=== PATIENT | male | born 1955 | race Caucasian/White ===

== ENCOUNTER 2024-03-25 10:26 | Inpatient (IN) | payer MEDICARE, OTHER ==
[~2024-03-25] VITALS: Ht 180.3 cm; Wt 68.2 kg
[~2024-03-25 10:26] MED LIST: AMOX1TAB15 PO
[2024-03-25 11:35] LABS: CALCIUM, SERUM 8.5 mg/dL (8.5-10.1); CARBON DIOXIDE 33 mmol/L (21-32); CHLORIDE 95 mmol/L (98-107); CREATININE 4.8 mg/dL (0.6-1.3); GLUCOSE 56 mg/dL (74-106); POTASSIUM 5.4 mmol/L (3.5-5.1); SODIUM SERUM 132 mmol/L (136-145); UREA NITROGEN, BLOOD 57 mg/dL (7-18)
[2024-03-25] MEDS: CEFEPIME 1 GM in IV D5W 50 ML IV ONE (11:35)
[2024-03-25 11:38] LABS: BASOPHILS # (AUTO) 0.1 K/uL (0.0-0.2); BASOPHILS % (AUTO) 1.8 % (0.0-2.0); EOSINOPHILS % (AUTO) 0.3 % (0.0-6.0); HEMATOCRIT 23 % (39-51); HEMOGLOBIN 7.8 g/dL (13.5-17.5); LYMPHOCYTES # (AUTO) 0.5 K/uL (0.8-4.8); LYMPHOCYTES % (AUTO) 15.4 % (20.0-44.0); MEAN CORPUSCULAR HEMOGLOBIN 32 PG (26.0-33.0); MEAN CORPUSCULAR HGB CONC 35 g/dl (31.0-36.0); MEAN CORPUSCULAR VOLUME 91 fL (80-96); MONOCYTES # (AUTO) 0.2 K/uL (0.1-1.30); MONOCYTES % (AUTO) 5.8 % (2.0-12.0); NEUTROPHILS # (AUTO) 2.5 K/uL (1.8-8.9); NEUTROPHILS % (AUTO) 76.7 % (43.0-81.0); PLATELET COUNT (AUTO) 168 K/uL (150-450); RED BLOOD CELL COUNT(AUTO) 2.49 MIL/uL (4.5-6.0); RED CELL DISTRIBUTION WIDTH 18.9 % (11.5-15.0); WHITE BLOOD COUNT (AUTO) 3.2 K/uL (4.3-11.0)
[2024-03-25 11:45] LABS: INR 1.37 (0.91-1.10); PARTIAL THROMBOPLASTIN TIME 42.4 SEC (24.3-34.3); PROTHROMBIN TIME 14.2 SECS (9.2-11.1)
[2024-03-25 11:52] LABS: ALANINE AMINOTRANSFERASE 53 U/L (12-78); ALBUMIN 1.6 g/dL (3.4-5.0); ALKALINE PHOSPHATASE 1696 U/L (46-116); ASPARTATE AMINOTRANSFERASE 79 U/L (15-37); BILIRUBIN,DIRECT 1.3 mg/dL (0.0-0.2); BILIRUBIN,TOTAL 1.8 mg/dL (0.2-1.0); TOTAL PROTEIN, SERUM 8.6 g/dL (6.4-8.2)
[2024-03-25] MEDS: VANCOMYCIN 1 GM in IV D5W 250 ML IV ONE (12:00)
[2024-03-25] MEDS ORDERED: OMEP20CA15 PO (12:23)
[2024-03-25] MEDS ORDERED: MELA3TAB41 PO (12:23)
[2024-03-25] MEDS ORDERED: VENL37.510 PO (12:23)
[2024-03-25] MEDS ORDERED: NA P133E RC (12:23)
[2024-03-25] MEDS ORDERED: MULT-1275 PO (12:23)
[2024-03-25] MEDS ORDERED: AMLO-213 PO (12:23)
[2024-03-25] MEDS ORDERED: ATOR80TA PO (12:23)
[2024-03-25] MEDS ORDERED: FINA5TAB3 PO (12:23)
[2024-03-25] MEDS ORDERED: POLY17PO4 PO (12:23)
[2024-03-25] MEDS ORDERED: SENN-261 PO (12:23)
[2024-03-25] MEDS ORDERED: TRAM50TA2 PO (12:23)
[2024-03-25] MEDS ORDERED: SEVE2.4P3 PO (12:23)
[2024-03-25] MEDS ORDERED: METO50TA16 PO (12:23)
[2024-03-25] MEDS ORDERED: BISA10SU11 RC (12:23)
[2024-03-25] MEDS ORDERED: INSU100V3 SQ (12:23)
[2024-03-25] MEDS ORDERED: APIX2.5T PO (12:23)
[2024-03-25] MEDS ORDERED: ACET325T53 PO (12:23)
[2024-03-25] MEDS ORDERED: CHOL200059 PO (12:23)
[2024-03-25] MEDS ORDERED: FOLI0.8T23 PO (12:23)
[2024-03-25] MEDS ORDERED: GABA300C PO (12:23)
[2024-03-25] MEDS ORDERED: IV LR 500 ML IV ONE (12:30)
[2024-03-25] MEDS: IV NS 0.9% 1,000 ML BAG IV ONE (13:20)
[2024-03-25] MEDS ORDERED: MAGNESIUM HYDROXIDE 30 ML UDC PO PRN (15:00)
[2024-03-25] MEDS ORDERED: POLYETHYLENE GLYCOL 3350 17 GM POWD.PACK PO PRN (15:00)
[2024-03-25] MEDS ORDERED: Z GUARD REMEDY 4 OZ OINT TP PRN (15:00)
[2024-03-25] MEDS ORDERED: SENNOSIDES 8.6 MG TABLET PO PRN (15:00)
[2024-03-25] MEDS ORDERED: ACETAMINOPHEN 325 MG TABLET PO PRN ×2 (15:00)
[2024-03-25] MEDS ORDERED: NA PHOS,M-B/NA PHOS,DI-BA 1 EA ENEMA RC PRN (15:00)
[2024-03-25] MEDS ORDERED: DEXTROSE 50%-WATER 50 ML DISP.SYRIN IV PRN (15:00)
[2024-03-25] MEDS ORDERED: ONDANSETRON HCL/PF 4 MG/2 ML VIAL IVP PRN (15:00)
[2024-03-25] MEDS ORDERED: BISACODYL SUPP (10 MG) 10 MG/SUPP.RECT SUPP.RECT RC PRN (15:00)
[2024-03-25] MEDS ORDERED: MAG HYDROX/AL HYDROX/SIMETH 30 ML UDC PO PRN (15:00)
[2024-03-25] MEDS: BLOOD SUGAR DIAGNOSTIC 1 EACH STRIP VI SCH (16:58)
[2024-03-25] MEDS: APIXABAN 2.5 MG TABLET PO SCH (16:58)
[2024-03-25] MEDS: SEVELAMER CARBONATE 800 MG TABLET PO SCH (17:27)
[2024-03-25] MEDS ORDERED: VANCOMYCIN 500 MG in IV D5W 100 ML IV PRN (17:30)
[2024-03-25] MEDS: FINASTERIDE (5 MG) 5 MG TABLET PO SCH (22:00)
[2024-03-26] VITALS: BP 136/82; TEMP 97.2; TEMP 97.6; O2SAT 95
[2024-03-26 04:00] VITALS: BP 143/92; TEMP 97.8; O2SAT 97
[2024-03-26 06:46] LABS: BASOPHILS % (AUTO) 1.3 % (0.0-2.0); HEMATOCRIT 23 % (39-51); HEMOGLOBIN 8.1 g/dL (13.5-17.5); LYMPHOCYTES # (AUTO) 0.6 K/uL (0.8-4.8); LYMPHOCYTES % (AUTO) 24.4 % (20.0-44.0); MEAN CORPUSCULAR HEMOGLOBIN 33 PG (26.0-33.0); MEAN CORPUSCULAR HGB CONC 36 g/dl (31.0-36.0); MEAN CORPUSCULAR VOLUME 92 fL (80-96); MONOCYTES # (AUTO) 0.2 K/uL (0.1-1.30); MONOCYTES % (AUTO) 7.6 % (2.0-12.0); NEUTROPHILS # (AUTO) 1.6 K/uL (1.8-8.9); NEUTROPHILS % (AUTO) 65.7 % (43.0-81.0); PLATELET COUNT (AUTO) 138 K/uL (150-450); RED BLOOD CELL COUNT(AUTO) 2.47 MIL/uL (4.5-6.0); RED CELL DISTRIBUTION WIDTH 19.1 % (11.5-15.0); WHITE BLOOD COUNT (AUTO) 2.4 K/uL (4.3-11.0)
[2024-03-26 07:06] LABS: CALCIUM, SERUM 8.2 mg/dL (8.5-10.1); CREATININE 5.3 mg/dL (0.6-1.3); MAGNESIUM 2.3 mg/dL (1.8-2.4); POTASSIUM 5.6 mmol/L (3.5-5.1)
[2024-03-26 07:51] LABS: PHOSPHORUS 8.3 mg/dL (2.5-4.9)
[2024-03-26 08:00] VITALS: BP 148/88; TEMP 98.2; O2SAT 92
[2024-03-26] MEDS: PANTOPRAZOLE 40 MG TABLET.DR PO SCH (08:17)
[2024-03-26] MEDS: VENLAFAXINE 37.5 MG TABLET PO SCH (08:18)
[2024-03-26] MEDS: GABAPENTIN 300 MG CAPSULE PO SCH (08:18)
[2024-03-26] MEDS: TRAMADOL HCL 50 MG TABLET PO PRN (08:19)
[2024-03-26] MEDS: AMLODIPINE BESYLATE 10 MG TABLET PO SCH (08:20)
[2024-03-26] MEDS: METOPROLOL TARTRATE 50 MG TABLET PO SCH (08:21)
[2024-03-26] MEDS: CEFEPIME 1 GM in IV D5W 50 ML IV SCH (11:48)
[2024-03-26 16:05] VITALS: BP 128/79; TEMP 97.5; O2SAT 92
[2024-03-26 20:00] VITALS: BP 123/78; TEMP 97.3; O2SAT 100
[2024-03-26] MEDS: *INSULIN REGULAR(HUMULIN R)HUM 100 UNIT/ML VIAL SQ PRN (22:10)
[2024-03-27] VITALS: BP 135/65; TEMP 98.2; O2SAT 94
[2024-03-27 04:00] VITALS: BP 114/77; TEMP 97.9; O2SAT 91
[2024-03-27] MEDS: INSULIN REGULAR, HUMAN 100 UNIT/ML 3 ML VIAL SQ PRN (06:32)
[2024-03-27 07:00] VITALS: BP 122/55; TEMP 97.7; O2SAT 94
[2024-03-27 16:05] VITALS: BP 128/73; TEMP 98; O2SAT 96
[2024-03-28 04:06] LABS: HEPATITIS B SURFACE AB Non Reactive (.)
== END 2024-03-27 16:00 | DRG 280 ==
LOC: ER 10:32 → TELE 14:50
PROVIDERS: ADMIT Internal Medicine
PROC: 5A1D70Z Performance of Urinary Filtration, Intermittent, Less than 6 Hours Per Day (ICD-10-PCS; principal; 2024-03-25)
DX: I13.2 Hypertensive heart and chronic kidney disease with heart failure and with stage 5 chronic kidney disease, or end stage renal disease (principal); E43 Unspecified severe protein-calorie malnutrition; I21.A1 Myocardial infarction type 2; J15.69 Pneumonia due to other Gram-negative bacteria; G93.41 Metabolic encephalopathy; J96.01 Acute respiratory failure with hypoxia; N18.6 End stage renal disease; I50.33 Acute on chronic diastolic (congestive) heart failure; R18.0 Malignant ascites; J81.1 Chronic pulmonary edema; I48.92 Unspecified atrial flutter; E87.1 Hypo-osmolality and hyponatremia; Z99.2 Dependence on renal dialysis; E11.22 Type 2 diabetes mellitus with diabetic chronic kidney disease; E11.40 Type 2 diabetes mellitus with diabetic neuropathy, unspecified; E11.51 Type 2 diabetes mellitus with diabetic peripheral angiopathy without gangrene; E78.5 Hyperlipidemia, unspecified; K74.60 Unspecified cirrhosis of liver; N40.0 Benign prostatic hyperplasia without lower urinary tract symptoms; M62 Other disorders of muscle; Z88.3 Allergy status to other anti-infective agents; Z88.2 Allergy status to sulfonamides; Z87.891 Personal history of nicotine dependence; Z86.73 Personal history of transient ischemic attack (TIA), and cerebral infarction without residual deficits; Z79.4 Long term (current) use of insulin; Z79.01 Long term (current) use of anticoagulants; Z79.899 Other long term (current) drug therapy; E86.1 Hypovolemia; E87.5 Hyperkalemia; I48.91 Unspecified atrial fibrillation; D63.8 Anemia in other chronic diseases classified elsewhere; E88.09 Other disorders of plasma-protein metabolism, not elsewhere classified; F32.9 Major depressive disorder, single episode, unspecified; K21.9 Gastro-esophageal reflux disease without esophagitis; N25.0 Renal osteodystrophy; Z85.9 Personal history of malignant neoplasm, unspecified; Y95 Nosocomial condition
CPT/HCPCS: 36415; 70450-TC; 71045-TC; 80048-TC; 80076-TC; 80202-TC; 82962-TC; 83605-TC; 83735-TC; 83880; 84100-TC; 84484-TC; 85025-TC; 85730-TC; 86706; 87040-TC; 87340; 90935-TC; 93307-TC; A4223; A6253; G0378; J0692; J1815; J3370; J7050; J7060; J7120

== ENCOUNTER 2024-06-16 21:05 | Inpatient (IN) | payer MEDICARE, OTHER ==
[~2024-06-16] VITALS: Ht 172.7 cm; Wt 73.5 kg
[~2024-06-16 21:05] MED LIST changes: +ACET325T53 PO; +AMLO-213 PO; +APIX2.5T PO; +ATOR80TA PO; +BISA10SU11 RC; +CHOL200059 PO; +FINA5TAB3 PO; +FOLI0.8T23 PO; +GABA300C PO; +INSU100V3 SQ; +MELA3TAB41 PO; +MERO500V23 IV; +METO50TA16 PO; +MULT-1275 PO; +NA P133E RC; +OMEP20CA15 PO; +POLY17PO4 PO; +SENN-261 PO; +SEVE2.4P3 PO; +TRAM50TA2 PO; +VENL37.510 PO
[2024-06-16] MEDS ORDERED: ONDANSETRON HCL/PF 4 MG/2 ML VIAL ONE (21:36)
[2024-06-16] MEDS ORDERED: PANTOPRAZOLE 40 MG VIAL ONE (21:36)
[2024-06-16 21:47] LABS: BASOPHILS % (AUTO) 0.9 % (0.0-2.0); EOSINOPHILS # (AUTO) 0.1 K/uL (0.0-0.7); HEMATOCRIT 25 % (39-51); HEMOGLOBIN 8.7 g/dL (13.5-17.5); LYMPHOCYTES # (AUTO) 0.5 K/uL (0.8-4.8); LYMPHOCYTES % (AUTO) 11.8 % (20.0-44.0); MEAN CORPUSCULAR HEMOGLOBIN 33 PG (26.0-33.0); MEAN CORPUSCULAR HGB CONC 35 g/dl (31.0-36.0); MEAN CORPUSCULAR VOLUME 93 fL (80-96); MONOCYTES # (AUTO) 0.2 K/uL (0.1-1.30); MONOCYTES % (AUTO) 4.3 % (2.0-12.0); NEUTROPHILS # (AUTO) 3.7 K/uL (1.8-8.9); PLATELET COUNT (AUTO) 117 K/uL (150-450); RED BLOOD CELL COUNT(AUTO) 2.66 MIL/uL (4.5-6.0); RED CELL DISTRIBUTION WIDTH 16.7 % (11.5-15.0); WHITE BLOOD COUNT (AUTO) 4.6 K/uL (4.3-11.0)
[2024-06-16] MEDS: IV NS 0.9% 1,000 ML BAG IV ONE (21:56)
[2024-06-16] MEDS: PANTOPRAZOLE 80 MG in IV NS 0.9% 100 ML IV ONE (21:56)
[2024-06-16] MEDS: ONDANSETRON HCL/PF 4 MG/2 ML VIAL IVP ONE (21:56)
[2024-06-16 22:07] LABS: CALCIUM, SERUM 8.4 mg/dL (8.5-10.1); CARBON DIOXIDE 27 mmol/L (21-32); CHLORIDE 105 mmol/L (98-107); CREATININE 4.3 mg/dL (0.6-1.3); GLUCOSE 69 mg/dL (74-106); POTASSIUM 5.7 mmol/L (3.5-5.1); SODIUM SERUM 140 mmol/L (136-145); UREA NITROGEN, BLOOD 76 mg/dL (7-18)
[2024-06-16 22:10] LABS: INR 1.17 (0.91-1.10); PARTIAL THROMBOPLASTIN TIME 32.7 SEC (24.3-34.3); PROTHROMBIN TIME 12.3 SECS (9.2-11.1)
[2024-06-16] MEDS: PANTOPRAZOLE 80 MG in IV NS 0.9% 500 ML IV ONE (22:10)
[2024-06-16 22:21] LABS: ALANINE AMINOTRANSFERASE 12 U/L (12-78); ALKALINE PHOSPHATASE 689 U/L (46-116); ASPARTATE AMINOTRANSFERASE 31 U/L (15-37); BILIRUBIN,DIRECT 0.3 mg/dL (0.0-0.2); BILIRUBIN,TOTAL 0.8 mg/dL (0.2-1.0); LIPASE 10 U/L (16-77); TOTAL PROTEIN, SERUM 6.8 g/dL (6.4-8.2)
[2024-06-16] MEDS ORDERED: SODIUM ZIRCONIUM CYCLOSILICATE 10 GM POWD.PACK ONE (22:47)
[2024-06-16] MEDS ORDERED: DEXTROSE 50%-WATER 50 ML DISP.SYRIN ONE (22:47)
[2024-06-16] MEDS: SODIUM ZIRCONIUM CYCLOSILICATE 10 GM POWD.PACK PO ONE (22:48)
[2024-06-16] MEDS: DEXTROSE 50%-WATER 50 ML DISP.SYRIN IV ONE (22:48)
[2024-06-16 23:00] LABS: NT-PRO BNP > 25000 pg/mL (0-125)
[2024-06-17] MEDS ORDERED: ALBUMIN 25% 50 ML IV ONE
[2024-06-17] MEDS: ALBUMIN 25% 12.5 GM/50 ML BOTTLE IV ONE (00:01)
[2024-06-17] MEDS ORDERED: MAGNESIUM HYDROXIDE 30 ML UDC PO PRN (00:30)
[2024-06-17] MEDS ORDERED: MAG HYDROX/AL HYDROX/SIMETH 30 ML UDC PO PRN (00:30)
[2024-06-17] MEDS ORDERED: DEXTROSE 50%-WATER 50 ML DISP.SYRIN ONE ×2 (05:54→07:59)
[2024-06-17] MEDS: BLOOD SUGAR DIAGNOSTIC 1 EACH STRIP IN SCH (05:57)
[2024-06-17] MEDS: DEXTROSE 50%-WATER 50 ML DISP.SYRIN IV PRN (05:57)
[2024-06-17] MEDS ORDERED: Sodium Chloride 154 MEQ in IV 10% DEXTROSE 1,000 ML IV PRN (08:30)
[2024-06-17] MEDS ORDERED: PANT40TA49 PO (08:41)
[2024-06-17] MEDS ORDERED: MAGN400O6 PO (08:41)
[2024-06-17] MEDS ORDERED: LEVO25TA9 PO (08:41)
[2024-06-17] MEDS ORDERED: GLUC1KIT IM (08:41)
[2024-06-17] MEDS ORDERED: MIRT7.5T10 PO (08:41)
[2024-06-17] MEDS ORDERED: LORA-259 PO (08:41)
[2024-06-17] MEDS ORDERED: CLON0.1T PO (08:41)
[2024-06-17] MEDS ORDERED: IPRA3AMP23 NEB (08:41)
[2024-06-17] MEDS ORDERED: METO25TA4 PO (08:41)
[2024-06-17] MEDS ORDERED: VENL75TA4 PO (08:41)
[2024-06-17] MEDS: CEFEPIME 2 GM in IV D5W 100 ML IV SCH (09:43)
[2024-06-17] MEDS: IV 10% DEXTROSE 1,000 ML IV PRN (11:38)
[2024-06-17 12:00] VITALS: BP 113/55; TEMP 98.1; O2SAT 93
[2024-06-17] MEDS ORDERED: DIATR MEGLU/DIATRIZOATE SODIUM 30 ML BOTTLE (GASTROGRAPHIN) ONE (12:24)
[2024-06-17 16:00] VITALS: BP 110/62; TEMP 98.2; O2SAT 93
[2024-06-17 20:00] VITALS: BP 148/98; TEMP 94.5; O2SAT 88; O2SAT 97
[2024-06-18] VITALS (10 sets, daily range): BP systolic 114–167; BP diastolic 73–102; TEMP 94.8–98; O2SAT 91–98
[2024-06-18] MEDS: INSULIN REGULAR, HUMAN 100 UNIT/ML 3 ML VIAL SQ PRN (00:07)
[2024-06-18] MEDS: ACETAMINOPHEN 325 MG TABLET PO PRN (03:14)
[2024-06-18 04:29] LABS: CALCIUM, SERUM 7.7 mg/dL (8.5-10.1); CREATININE 3.2 mg/dL (0.6-1.3); MAGNESIUM 2.1 mg/dL (1.8-2.4); PHOSPHORUS 3.8 mg/dL (2.5-4.9); POTASSIUM 4.4 mmol/L (3.5-5.1)
[2024-06-18 04:32] LABS: INR 1.3 (0.91-1.10); PARTIAL THROMBOPLASTIN TIME 39.3 SEC (24.3-34.3); PROTHROMBIN TIME 13.5 SECS (9.2-11.1)
[2024-06-18 04:35] LABS: BASOPHILS % (AUTO) 0.9 % (0.0-2.0); EOSINOPHILS # (AUTO) 0.1 K/uL (0.0-0.7); EOSINOPHILS % (AUTO) 2.9 % (0.0-6.0); LYMPHOCYTES # (AUTO) 0.4 K/uL (0.8-4.8); LYMPHOCYTES % (AUTO) 12.8 % (20.0-44.0); MEAN CORPUSCULAR HEMOGLOBIN 32 PG (26.0-33.0); MEAN CORPUSCULAR HGB CONC 35 g/dl (31.0-36.0); MEAN CORPUSCULAR VOLUME 91 fL (80-96); MONOCYTES # (AUTO) 0.1 K/uL (0.1-1.30); MONOCYTES % (AUTO) 4.8 % (2.0-12.0); NEUTROPHILS # (AUTO) 2.4 K/uL (1.8-8.9); NEUTROPHILS % (AUTO) 78.6 % (43.0-81.0); PLATELET COUNT (AUTO) 90 K/uL (150-450); RED BLOOD CELL COUNT(AUTO) 2.19 MIL/uL (4.5-6.0); RED CELL DISTRIBUTION WIDTH 16.9 % (11.5-15.0); WHITE BLOOD COUNT (AUTO) 3.1 K/uL (4.3-11.0)
[2024-06-18 05:02] LABS: HEMATOCRIT 20 % (39-51)
[2024-06-18 06:08] LABS: PLATELET ESTIMATE ADEQUATE
[2024-06-18 06:14] LABS: EOSINOPHILS % (MANUAL) 3 % (0-4); LYMPHOCYTES % (MANUAL) 12 % (16-48); MONOCYTES % (MANUAL) 7 % (0-11.0); NEUTROPHILS % (MANUAL) 78 (42-76)
[2024-06-18 06:15] LABS: ANISOCYTOSIS 1+
[2024-06-18] MEDS: PANTOPRAZOLE 40 MG VIAL IV SCH (09:11)
[2024-06-18] MEDS ORDERED: hydrALAZINE HCL IV 20 MG VIAL IV PRN (18:00)
[2024-06-18] MEDS: hydrALAZINE HCL IV 20 MG VIAL IV PRN (18:23)
[2024-06-19] VITALS: BP 147/91; TEMP 97.5; O2SAT 97
[2024-06-19 04:00] VITALS: BP 147/100; TEMP 97.5; O2SAT 96
[2024-06-19 07:33] LABS: BASOPHILS % (AUTO) 0.8 % (0.0-2.0); EOSINOPHILS # (AUTO) 0.1 K/uL (0.0-0.7); EOSINOPHILS % (AUTO) 2.3 % (0.0-6.0); HEMATOCRIT 24 % (39-51); HEMOGLOBIN 8.2 g/dL (13.5-17.5); LYMPHOCYTES # (AUTO) 0.4 K/uL (0.8-4.8); LYMPHOCYTES % (AUTO) 10.6 % (20.0-44.0); MEAN CORPUSCULAR HEMOGLOBIN 31 PG (26.0-33.0); MEAN CORPUSCULAR HGB CONC 35 g/dl (31.0-36.0); MEAN CORPUSCULAR VOLUME 89 fL (80-96); MONOCYTES # (AUTO) 0.2 K/uL (0.1-1.30); MONOCYTES % (AUTO) 5.6 % (2.0-12.0); NEUTROPHILS # (AUTO) 3.1 K/uL (1.8-8.9); NEUTROPHILS % (AUTO) 80.7 % (43.0-81.0); PLATELET COUNT (AUTO) 92 K/uL (150-450); RED BLOOD CELL COUNT(AUTO) 2.64 MIL/uL (4.5-6.0); WHITE BLOOD COUNT (AUTO) 3.8 K/uL (4.3-11.0)
[2024-06-19 07:49] LABS: CREATININE 3.6 mg/dL (0.6-1.3); MAGNESIUM 1.9 mg/dL (1.8-2.4); PHOSPHORUS 4.2 mg/dL (2.5-4.9); POTASSIUM 4.9 mmol/L (3.5-5.1)
[2024-06-19 08:00] VITALS: BP 167/95; TEMP 97.9; O2SAT 96
[2024-06-19 08:15] LABS: HEMOGLOBIN 9.1 g/dL (13.5-17.5)
[2024-06-19 10:34] LABS: INR 1.31 (0.91-1.10); PROTHROMBIN TIME 13.3 SECS (9.2-11.1)
[2024-06-19 12:00] VITALS: BP 146/93; TEMP 97.5; O2SAT 98
[2024-06-19 12:06] LABS: ANISOCYTOSIS 1+; EOSINOPHILS % (MANUAL) 2 % (0-4); LYMPHOCYTES % (MANUAL) 11 % (16-48); MONOCYTES % (MANUAL) 3 % (0-11.0); NEUTROPHILS % (MANUAL) 84 (42-76); PLATELET ESTIMATE DECREASED
[2024-06-19] MEDS ORDERED: DEXTROSE 50%-WATER 50 ML DISP.SYRIN ONE (12:15)
[2024-06-19] MEDS ORDERED: ALBUMIN 5% 250 ML IV ONE (12:35)
[2024-06-19] MEDS: DAKINS QUARTER STRENGTH (0.125%) 480 ML BOTTLE TOP SCH (13:54)
[2024-06-19] MEDS: DEXTROSE 50%-WATER 50 ML DISP.SYRIN IVP ONE (14:06)
[2024-06-19 16:00] VITALS: BP 167/97; TEMP 97.6; O2SAT 98
[2024-06-19 20:00] VITALS: BP 155/97; TEMP 97.5; O2SAT 100
[2024-06-19 20:30] LABS: PROTEIN, BODY FLUID 1.3 G/DL
[2024-06-19 22:16] LABS: APPEARANCE,SPUN,BODY FLUID CLEAR (CLEAR); MONOCYTES,BODY FLUID 5 %; TOTAL VOLUME,BODY FLUID 1500 mL; WBC, BODY FLUID 1170 /cu. mm. (0-200)
[2024-06-19] MEDS ORDERED: NS 0.9% IV ONE (22:30)
[2024-06-19] MEDS ORDERED: VANCOMYCIN IV ONE (22:30)
[2024-06-19] MEDS ORDERED: VANCOMYCIN 1 GM /D5W 250 ML PB IV ONE (23:57)
[2024-06-20] VITALS: BP 148/92; TEMP 97.5; O2SAT 100
[2024-06-20] MEDS: VANCOMYCIN 1 GM in IV D5W 250 ML IV ONE (00:21)
[2024-06-20 04:00] VITALS: BP 145/76; TEMP 97.5; O2SAT 100
[2024-06-20 07:25] LABS: BASOPHILS % (AUTO) 0.3 % (0.0-2.0); EOSINOPHILS # (AUTO) 0.1 K/uL (0.0-0.7); EOSINOPHILS % (AUTO) 2.7 % (0.0-6.0); HEMATOCRIT 24 % (39-51); HEMOGLOBIN 8.2 g/dL (13.5-17.5); LYMPHOCYTES # (AUTO) 0.4 K/uL (0.8-4.8); LYMPHOCYTES % (AUTO) 11.4 % (20.0-44.0); MEAN CORPUSCULAR HEMOGLOBIN 31 PG (26.0-33.0); MEAN CORPUSCULAR HGB CONC 35 g/dl (31.0-36.0); MEAN CORPUSCULAR VOLUME 89 fL (80-96); MONOCYTES # (AUTO) 0.2 K/uL (0.1-1.30); MONOCYTES % (AUTO) 4.3 % (2.0-12.0); NEUTROPHILS % (AUTO) 81.3 % (43.0-81.0); PLATELET COUNT (AUTO) 66 K/uL (150-450); RED BLOOD CELL COUNT(AUTO) 2.67 MIL/uL (4.5-6.0); RED CELL DISTRIBUTION WIDTH 17.1 % (11.5-15.0); WHITE BLOOD COUNT (AUTO) 3.6 K/uL (4.3-11.0)
[2024-06-20 08:00] VITALS: BP 147/106; TEMP 97.3; O2SAT 99
[2024-06-20 08:33] LABS: CALCIUM, SERUM 7.6 mg/dL (8.5-10.1); CREATININE 3.6 mg/dL (0.6-1.3); MAGNESIUM 1.9 mg/dL (1.8-2.4); PHOSPHORUS 4.5 mg/dL (2.5-4.9); POTASSIUM 4.8 mmol/L (3.5-5.1)
[2024-06-20 12:00] VITALS: BP 150/69; TEMP 97.2; O2SAT 100
[2024-06-20 12:08] LABS: ANISOCYTOSIS 1+; EOSINOPHILS % (MANUAL) 2 % (0-4); LYMPHOCYTES % (MANUAL) 12 % (16-48); MONOCYTES % (MANUAL) 3 % (0-11.0); NEUTROPHILS % (MANUAL) 83 (42-76); PLATELET ESTIMATE DECREASED
[2024-06-20] MEDS ORDERED: MIDODRINE HCL (5MG) 5 MG TABLET PO ONE (15:00)
[2024-06-20 16:00] VITALS: BP 147/89; TEMP 97.3; O2SAT 97
[2024-06-20 20:00] VITALS: BP 156/92; TEMP 97.3; O2SAT 100
[2024-06-21] VITALS: BP 162/97; TEMP 97.5; O2SAT 100
[2024-06-21 04:00] VITALS: BP 134/87; TEMP 97.5; O2SAT 99
[2024-06-21 07:09] LABS: CALCIUM, SERUM 7.5 mg/dL (8.5-10.1); CREATININE 2.8 mg/dL (0.6-1.3); MAGNESIUM 1.9 mg/dL (1.8-2.4); PHOSPHORUS 4.1 mg/dL (2.5-4.9); POTASSIUM 4.3 mmol/L (3.5-5.1)
[2024-06-21 07:41] LABS: BASOPHILS % (AUTO) 0.4 % (0.0-2.0); EOSINOPHILS # (AUTO) 0.1 K/uL (0.0-0.7); EOSINOPHILS % (AUTO) 4.1 % (0.0-6.0); HEMATOCRIT 22 % (39-51); HEMOGLOBIN 7.9 g/dL (13.5-17.5); LYMPHOCYTES # (AUTO) 0.4 K/uL (0.8-4.8); LYMPHOCYTES % (AUTO) 12.4 % (20.0-44.0); MEAN CORPUSCULAR HEMOGLOBIN 32 PG (26.0-33.0); MEAN CORPUSCULAR HGB CONC 36 g/dl (31.0-36.0); MEAN CORPUSCULAR VOLUME 89 fL (80-96); MONOCYTES # (AUTO) 0.2 K/uL (0.1-1.30); MONOCYTES % (AUTO) 4.5 % (2.0-12.0); NEUTROPHILS # (AUTO) 2.8 K/uL (1.8-8.9); NEUTROPHILS % (AUTO) 78.6 % (43.0-81.0); PLATELET COUNT (AUTO) 67 K/uL (150-450); RED BLOOD CELL COUNT(AUTO) 2.47 MIL/uL (4.5-6.0); RED CELL DISTRIBUTION WIDTH 16.6 % (11.5-15.0); WHITE BLOOD COUNT (AUTO) 3.6 K/uL (4.3-11.0)
[2024-06-21 08:00] VITALS: BP 147/91; TEMP 97.5; O2SAT 99
[2024-06-21 10:47] LABS: LYMPHOCYTES % (MANUAL) 11 % (16-48); MONOCYTES % (MANUAL) 5 % (0-11.0); NEUTROPHILS % (MANUAL) 84 (42-76); PLATELET ESTIMATE DECREASED
[2024-06-21 10:48] LABS: ANISOCYTOSIS 1+
[2024-06-21 12:00] VITALS: BP 140/95; TEMP 97.8; O2SAT 99
[2024-06-21] MEDS: VANCOMYCIN 500 MG in IV D5W 100ml IV ONE (13:08)
[2024-06-21 16:00] VITALS: BP 138/95; TEMP 97.8; O2SAT 99
[2024-06-21 16:02] LABS: BASOPHILS % (AUTO) 0.4 % (0.0-2.0); EOSINOPHILS # (AUTO) 0.2 K/uL (0.0-0.7); EOSINOPHILS % (AUTO) 5.5 % (0.0-6.0); HEMATOCRIT 22 % (39-51); HEMOGLOBIN 8.2 g/dL (13.5-17.5); LYMPHOCYTES # (AUTO) 0.4 K/uL (0.8-4.8); LYMPHOCYTES % (AUTO) 11.2 % (20.0-44.0); MEAN CORPUSCULAR HEMOGLOBIN 32 PG (26.0-33.0); MEAN CORPUSCULAR HGB CONC 36 g/dl (31.0-36.0); MEAN CORPUSCULAR VOLUME 89 fL (80-96); MONOCYTES # (AUTO) 0.2 K/uL (0.1-1.30); NEUTROPHILS # (AUTO) 3.1 K/uL (1.8-8.9); NEUTROPHILS % (AUTO) 77.9 % (43.0-81.0); PLATELET COUNT (AUTO) 59 K/uL (150-450); RED BLOOD CELL COUNT(AUTO) 2.53 MIL/uL (4.5-6.0); RED CELL DISTRIBUTION WIDTH 16.6 % (11.5-15.0)
[2024-06-21] MEDS ORDERED: diphenhydrAMINE HCL 50 MG/ML VIAL IV ONE (17:00)
[2024-06-21] MEDS ORDERED: VANCOMYCIN POST DIALYSIS 500MG IV PRN (17:00)
[2024-06-21] MEDS ORDERED: ACETAMINOPHEN 325 MG TABLET PO ONE (17:00)
[2024-06-21 17:19] LABS: INR 1.48 (0.91-1.10); PARTIAL THROMBOPLASTIN TIME 44.5 SEC (24.3-34.3); PROTHROMBIN TIME 15.3 SECS (9.2-11.1)
[2024-06-21 18:29] LABS: D-DIMER 4.68 mg/L(FEU (0.17-0.50)
[2024-06-21 18:31] LABS: RHEUMATOID FACTOR SCREEN NEGATIVE (NEGATIVE)
[2024-06-21 18:42] LABS: THYROID STIMULATING HORMONE 4.51 uIU/mL (0.358-3.74)
[2024-06-21 19:07] LABS: ANISOCYTOSIS 1+; EOSINOPHILS % (MANUAL) 4 % (0-4); LYMPHOCYTES % (MANUAL) 10 % (16-48); MONOCYTES % (MANUAL) 2 % (0-11.0); NEUTROPHILS % (MANUAL) 84 (42-76); PLATELET ESTIMATE DECREASED
[2024-06-21 20:00] VITALS: BP 156/97; TEMP 97.8; O2SAT 100
[2024-06-22] VITALS: BP_SYST 160; BP_SYST 161; BP_DIAS 88; BP_DIAS 90; TEMP 97.1; TEMP 97.3; O2SAT 100
[2024-06-22 04:00] VITALS: BP 157/90; TEMP 98.5; O2SAT 100
[2024-06-22 07:09] LABS: HEPATITIS B SURFACE AB (QUAL) Non Reactive (.)
[2024-06-22 08:00] VITALS: BP 159/89; TEMP 97.3; O2SAT 100
[2024-06-22 08:11] LABS: IMMUNOGLOBULIN A, SERUM 731 mg/dL (61-437); IMMUNOGLOBULIN G, SERUM 2423 mg/dL (603-1613); IMMUNOGLOBULIN M, SERUM 154 mg/dL (20-172)
[2024-06-22 08:19] LABS: BASOPHILS % (AUTO) 0.8 % (0.0-2.0); EOSINOPHILS # (AUTO) 0.2 K/uL (0.0-0.7); EOSINOPHILS % (AUTO) 5.3 % (0.0-6.0); HEMATOCRIT 23 % (39-51); HEMOGLOBIN 8.2 g/dL (13.5-17.5); LYMPHOCYTES # (AUTO) 0.4 K/uL (0.8-4.8); LYMPHOCYTES % (AUTO) 11.1 % (20.0-44.0); MEAN CORPUSCULAR HEMOGLOBIN 31 PG (26.0-33.0); MEAN CORPUSCULAR HGB CONC 35 g/dl (31.0-36.0); MEAN CORPUSCULAR VOLUME 89 fL (80-96); MONOCYTES # (AUTO) 0.2 K/uL (0.1-1.30); MONOCYTES % (AUTO) 4.1 % (2.0-12.0); NEUTROPHILS % (AUTO) 78.7 % (43.0-81.0); PLATELET COUNT (AUTO) 57 K/uL (150-450); RED CELL DISTRIBUTION WIDTH 16.3 % (11.5-15.0); WHITE BLOOD COUNT (AUTO) 3.8 K/uL (4.3-11.0)
[2024-06-22 08:34] LABS: CALCIUM, SERUM 7.4 mg/dL (8.5-10.1); CREATININE 3.2 mg/dL (0.6-1.3); MAGNESIUM 1.9 mg/dL (1.8-2.4); PHOSPHORUS 4.4 mg/dL (2.5-4.9); POTASSIUM 4.5 mmol/L (3.5-5.1)
[2024-06-22 08:36] LABS: INR 1.46 (0.91-1.10); PROTHROMBIN TIME 15.1 SECS (9.2-11.1)
[2024-06-22 08:44] LABS: D-DIMER 4.94 mg/L(FEU (0.17-0.50)
[2024-06-22 10:08] LABS: BILIRUBIN,DIRECT 0.3 mg/dL (0.0-0.2); BILIRUBIN,TOTAL 0.7 mg/dL (0.2-1.0); TOTAL PROTEIN, SERUM 5.9 g/dL (6.4-8.2)
[2024-06-22 11:10] LABS: FOLIC ACID 2.2 ng/mL (>3.0)
[2024-06-22 12:00] VITALS: BP 156/98; TEMP 97.7; O2SAT 99
[2024-06-22 12:10] LABS: ANISOCYTOSIS 1+; EOSINOPHILS % (MANUAL) 9 % (0-4); LYMPHOCYTES % (MANUAL) 4 % (16-48); MONOCYTES % (MANUAL) 1 % (0-11.0); NEUTROPHILS % (MANUAL) 86 (42-76); PLATELET ESTIMATE DECREASED
[2024-06-22 12:11] LABS: *ANA ANTI-CENTROMERE B AB <0.2 AI (0.0-0.9); *ANA ANTI-DNA(DS) AB, QN 1 IU/mL (0-9); *ANA ANTI-JO-1 <0.2 AI (0.0-0.9); *ANA ANTICHROMATIN ANTIBODY 0.3 AI (0.0-0.9); *ANA RNP ANTIBODIES 2.1 AI (0.0-0.9); *ANA SJOGREN'S ANTI-SS-A <0.2 AI (0.0-0.9); *ANA SJOGREN'S ANTI-SS-B <0.2 AI (0.0-0.9); *ANAANTI-SCLERODERMA-70 AB <0.2 AI (0.0-0.9); *ANASMITH AB <0.2 AI (0.0-0.9)
[2024-06-22] MEDS ORDERED: ALBUMIN 25% 25 GM in PREMIX 1 EA IV STA (13:54)
[2024-06-22] MEDS: FOLIC ACID 1 MG TABLET PO SCH (14:52)
[2024-06-22 16:00] VITALS: BP 156/98; TEMP 97.7; O2SAT 100
[2024-06-22] MEDS: VANCOMYCIN POST DIALYSIS 500MG IV PRN (16:56)
[2024-06-22 20:00] VITALS: BP 157/81; TEMP 97.3; O2SAT 100
[2024-06-23] VITALS: BP 160/88; TEMP 97.3; O2SAT 100
[2024-06-23 04:00] VITALS: BP 168/89; TEMP 97.5; O2SAT 100
[2024-06-23 08:00] VITALS: BP 121/98; TEMP 97.5; O2SAT 95
[2024-06-23 08:33] LABS: BASOPHILS % (AUTO) 0.4 % (0.0-2.0); EOSINOPHILS # (AUTO) 0.1 K/uL (0.0-0.7); EOSINOPHILS % (AUTO) 3.9 % (0.0-6.0); HEMATOCRIT 24 % (39-51); HEMOGLOBIN 8.4 g/dL (13.5-17.5); LYMPHOCYTES # (AUTO) 0.4 K/uL (0.8-4.8); LYMPHOCYTES % (AUTO) 9.8 % (20.0-44.0); MEAN CORPUSCULAR HEMOGLOBIN 32 PG (26.0-33.0); MEAN CORPUSCULAR HGB CONC 35 g/dl (31.0-36.0); MEAN CORPUSCULAR VOLUME 89 fL (80-96); MONOCYTES # (AUTO) 0.2 K/uL (0.1-1.30); NEUTROPHILS % (AUTO) 80.9 % (43.0-81.0); PLATELET COUNT (AUTO) 51 K/uL (150-450); RED BLOOD CELL COUNT(AUTO) 2.67 MIL/uL (4.5-6.0); RED CELL DISTRIBUTION WIDTH 16.2 % (11.5-15.0); WHITE BLOOD COUNT (AUTO) 3.7 K/uL (4.3-11.0)
[2024-06-23 08:41] LABS: CALCIUM, SERUM 7.5 mg/dL (8.5-10.1); CREATININE 2.8 mg/dL (0.6-1.3); MAGNESIUM 1.9 mg/dL (1.8-2.4); PHOSPHORUS 3.9 mg/dL (2.5-4.9); POTASSIUM 4.4 mmol/L (3.5-5.1)
[2024-06-23 09:20] LABS: INR 1.46 (0.91-1.10); PARTIAL THROMBOPLASTIN TIME 43.5 SEC (24.3-34.3); PROTHROMBIN TIME 15.1 SECS (9.2-11.1)
[2024-06-23 09:28] LABS: D-DIMER 4.54 mg/L(FEU (0.17-0.50)
[2024-06-23 10:15] LABS: EOSINOPHILS % (MANUAL) 3 % (0-4); LYMPHOCYTES % (MANUAL) 12 % (16-48); MONOCYTES % (MANUAL) 3 % (0-11.0); NEUTROPHILS % (MANUAL) 82 (42-76); PLATELET ESTIMATE DECREASED
[2024-06-23 12:00] VITALS: BP 140/82; TEMP 95.4; O2SAT 100
[2024-06-23 13:35] LABS: OCCULT BLOOD STOOL NEGATIVE (NEGATIVE)
[2024-06-23 16:00] VITALS: BP 135/95; TEMP 97.5; O2SAT 99
[2024-06-23] MEDS: ALBUMIN 25% 25 GM in PREMIX 1 EA IV PRN (18:46)
[2024-06-23] MEDS: PHYTONADIONE INJ 10 MG/1 ML AMPUL SQ ONE (19:45)
[2024-06-23 20:00] VITALS: BP 148/98; TEMP 98.5; O2SAT 99
[2024-06-24] VITALS: BP 148/98; TEMP 98.5; O2SAT 99
[2024-06-24 04:00] VITALS: BP 108/89; TEMP 97.8; O2SAT 99
[2024-06-24 08:00] VITALS: BP 125/92; TEMP 97.3; O2SAT 100
[2024-06-24 08:40] LABS: CALCIUM, SERUM 7.7 mg/dL (8.5-10.1); CREATININE 2.4 mg/dL (0.6-1.3); PHOSPHORUS 3.8 mg/dL (2.5-4.9); POTASSIUM 3.9 mmol/L (3.5-5.1)
[2024-06-24 08:50] LABS: D-DIMER 3.69 mg/L(FEU (0.17-0.50); INR 1.44 (0.91-1.10); PROTHROMBIN TIME 14.9 SECS (9.2-11.1)
[2024-06-24 08:54] LABS: BASOPHILS % (AUTO) 0.4 % (0.0-2.0); EOSINOPHILS # (AUTO) 0.1 K/uL (0.0-0.7); EOSINOPHILS % (AUTO) 3.7 % (0.0-6.0); LYMPHOCYTES # (AUTO) 0.3 K/uL (0.8-4.8); LYMPHOCYTES % (AUTO) 8.9 % (20.0-44.0); MEAN CORPUSCULAR HEMOGLOBIN 31 PG (26.0-33.0); MEAN CORPUSCULAR HGB CONC 35 g/dl (31.0-36.0); MEAN CORPUSCULAR VOLUME 88 fL (80-96); MONOCYTES # (AUTO) 0.2 K/uL (0.1-1.30); MONOCYTES % (AUTO) 4.4 % (2.0-12.0); NEUTROPHILS % (AUTO) 82.6 % (43.0-81.0); RED BLOOD CELL COUNT(AUTO) 2.29 MIL/uL (4.5-6.0); RED CELL DISTRIBUTION WIDTH 16.8 % (11.5-15.0); WHITE BLOOD COUNT (AUTO) 3.7 K/uL (4.3-11.0)
[2024-06-24 09:03] LABS: PLATELET COUNT (AUTO) 44 K/uL (150-450)
[2024-06-24 09:04] LABS: HEMATOCRIT 20 % (39-51)
[2024-06-24] MEDS ORDERED: hydrALAZINE HCL 25 MG TABLET PO PRN (09:30)
[2024-06-24 10:07] LABS: ANISOCYTOSIS 1+; EOSINOPHILS % (MANUAL) 4 % (0-4); LYMPHOCYTES % (MANUAL) 5 % (16-48); MONOCYTES % (MANUAL) 1 % (0-11.0); NEUTROPHILS % (MANUAL) 90 (42-76); PLATELET ESTIMATE DECREASED
[2024-06-24 12:00] VITALS: BP 128/90; TEMP 97.5; O2SAT 96
[2024-06-24 16:00] VITALS: BP 91/68; TEMP 97.5; O2SAT 100
[2024-06-24 20:00] VITALS: BP 147/84; TEMP 97.7; O2SAT 99
[2024-06-25] VITALS (12 sets, daily range): BP systolic 110–154; BP diastolic 61–90; TEMP 97.3–98.9; O2SAT 98–100
[2024-06-25 07:06] LABS: D-DIMER 4.37 mg/L(FEU (0.17-0.50); INR 1.51 (0.91-1.10); PROTHROMBIN TIME 15.6 SECS (9.2-11.1)
[2024-06-25 07:22] LABS: CALCIUM, SERUM 7.3 mg/dL (8.5-10.1); CREATININE 2.2 mg/dL (0.6-1.3); POTASSIUM 3.6 mmol/L (3.5-5.1)
[2024-06-25 07:28] LABS: MAGNESIUM 1.8 mg/dL (1.8-2.4); PHOSPHORUS 3.3 mg/dL (2.5-4.9)
[2024-06-25 08:25] LABS: BASOPHILS % (AUTO) 0.6 % (0.0-2.0); EOSINOPHILS # (AUTO) 0.1 K/uL (0.0-0.7); EOSINOPHILS % (AUTO) 2.5 % (0.0-6.0); LYMPHOCYTES # (AUTO) 0.4 K/uL (0.8-4.8); LYMPHOCYTES % (AUTO) 9.4 % (20.0-44.0); MEAN CORPUSCULAR HEMOGLOBIN 31 PG (26.0-33.0); MEAN CORPUSCULAR HGB CONC 35 g/dl (31.0-36.0); MEAN CORPUSCULAR VOLUME 88 fL (80-96); MONOCYTES # (AUTO) 0.2 K/uL (0.1-1.30); MONOCYTES % (AUTO) 4.3 % (2.0-12.0); NEUTROPHILS # (AUTO) 3.2 K/uL (1.8-8.9); NEUTROPHILS % (AUTO) 83.2 % (43.0-81.0); RED CELL DISTRIBUTION WIDTH 16.8 % (11.5-15.0); WHITE BLOOD COUNT (AUTO) 3.8 K/uL (4.3-11.0)
[2024-06-25 08:30] LABS: RED BLOOD CELL COUNT(AUTO) 1.89 MIL/uL (4.5-6.0)
[2024-06-25 08:32] LABS: HEMATOCRIT 17 % (39-51); HEMOGLOBIN 5.9 g/dL (13.5-17.5); PLATELET COUNT (AUTO) 41 K/uL (150-450)
[2024-06-25] MEDS: CEFEPIME 1 GM in IV D5W 50 ML IV SCH (09:00)
[2024-06-25] MEDS: diphenhydrAMINE HCL 50 MG/ML VIAL IV ONE (10:00)
[2024-06-25] MEDS: ACETAMINOPHEN 325 MG TABLET PO ONE (10:26)
[2024-06-25] MEDS: EPOETIN ALFA (10,000 UNIT) 10,000 UNIT/ML VIAL SQ SCH (10:52)
[2024-06-25 11:42] LABS: FERRITIN 2195 ng/mL (8-388); IRON, SERUM 57 ug/dl (50-175)
[2024-06-25 16:29] LABS: LYMPHOCYTES % (MANUAL) 12 % (16-48); MONOCYTES % (MANUAL) 3 % (0-11.0); NEUTROPHILS % (MANUAL) 85 (42-76); PLATELET ESTIMATE DECREASED
[2024-06-25 16:30] LABS: ANISOCYTOSIS 1+
[2024-06-26] VITALS (21 sets, daily range): BP systolic 104–159; BP diastolic 65–97; TEMP 97.3–98.1; O2SAT 96–100
[2024-06-26 07:31] LABS: INR 1.46 (0.91-1.10); PARTIAL THROMBOPLASTIN TIME 45.1 SEC (24.3-34.3); PROTHROMBIN TIME 15.1 SECS (9.2-11.1)
[2024-06-26 07:35] LABS: D-DIMER 4.87 mg/L(FEU (0.17-0.50)
[2024-06-26 08:09] LABS: CALCIUM, SERUM 7.6 mg/dL (8.5-10.1); CREATININE 2.1 mg/dL (0.6-1.3); MAGNESIUM 1.8 mg/dL (1.8-2.4); PHOSPHORUS 3.3 mg/dL (2.5-4.9); POTASSIUM 3.4 mmol/L (3.5-5.1)
[2024-06-26 08:23] LABS: BASOPHILS % (AUTO) 0.5 % (0.0-2.0); EOSINOPHILS # (AUTO) 0.2 K/uL (0.0-0.7); EOSINOPHILS % (AUTO) 2.6 % (0.0-6.0); HEMATOCRIT 26 % (39-51); HEMOGLOBIN 9.4 g/dL (13.5-17.5); LYMPHOCYTES # (AUTO) 0.3 K/uL (0.8-4.8); LYMPHOCYTES % (AUTO) 5.9 % (20.0-44.0); MEAN CORPUSCULAR HEMOGLOBIN 32 PG (26.0-33.0); MEAN CORPUSCULAR HGB CONC 37 g/dl (31.0-36.0); MEAN CORPUSCULAR VOLUME 85 fL (80-96); MONOCYTES # (AUTO) 0.2 K/uL (0.1-1.30); MONOCYTES % (AUTO) 3.3 % (2.0-12.0); NEUTROPHILS % (AUTO) 87.7 % (43.0-81.0); RED CELL DISTRIBUTION WIDTH 19.4 % (11.5-15.0); WHITE BLOOD COUNT (AUTO) 5.7 K/uL (4.3-11.0)
[2024-06-26 08:47] LABS: PLATELET COUNT (AUTO) 45 K/uL (150-450)
[2024-06-26] MEDS: ACETAMINOPHEN 325 MG TABLET PO ONE (12:26)
[2024-06-26] MEDS: diphenhydrAMINE HCL 50 MG/ML VIAL IV ONE (12:26)
[2024-06-26] MEDS: POTASSIUM CHLORIDE 20 MEQ TAB.PRT.SR PO ONE (13:19)
[2024-06-26 16:58] LABS: LYMPHOCYTES % (MANUAL) 12 % (16-48); MONOCYTES % (MANUAL) 3 % (0-11.0); NEUTROPHILS % (MANUAL) 85 (42-76)
[2024-06-26 17:05] LABS: PLATELET ESTIMATE DECREASED
[2024-06-27] VITALS (7 sets, daily range): BP systolic 143–167; BP diastolic 81–104; TEMP 97.5–97.9; O2SAT 100
[2024-06-27 07:41] LABS: D-DIMER 3.8 mg/L(FEU (0.17-0.50); INR 1.36 (0.91-1.10); PARTIAL THROMBOPLASTIN TIME 41.8 SEC (24.3-34.3); PROTHROMBIN TIME 14.1 SECS (9.2-11.1)
[2024-06-27 08:47] LABS: BASOPHILS % (AUTO) 0.5 % (0.0-2.0); EOSINOPHILS # (AUTO) 0.1 K/uL (0.0-0.7); EOSINOPHILS % (AUTO) 3.2 % (0.0-6.0); HEMATOCRIT 24 % (39-51); HEMOGLOBIN 8.6 g/dL (13.5-17.5); LYMPHOCYTES # (AUTO) 0.2 K/uL (0.8-4.8); LYMPHOCYTES % (AUTO) 4.6 % (20.0-44.0); MEAN CORPUSCULAR HEMOGLOBIN 31 PG (26.0-33.0); MEAN CORPUSCULAR HGB CONC 36 g/dl (31.0-36.0); MEAN CORPUSCULAR VOLUME 86 fL (80-96); MONOCYTES # (AUTO) 0.1 K/uL (0.1-1.30); MONOCYTES % (AUTO) 2.3 % (2.0-12.0); NEUTROPHILS % (AUTO) 89.4 % (43.0-81.0); RED BLOOD CELL COUNT(AUTO) 2.75 MIL/uL (4.5-6.0); RED CELL DISTRIBUTION WIDTH 19.2 % (11.5-15.0); WHITE BLOOD COUNT (AUTO) 4.4 K/uL (4.3-11.0)
[2024-06-27 08:50] LABS: PLATELET COUNT (AUTO) 37 K/uL (150-450)
[2024-06-27] MEDS: ONDANSETRON HCL/PF 4 MG/2 ML VIAL IVP PRN (11:34)
[2024-06-27 11:36] LABS: BILIRUBIN,DIRECT 0.5 mg/dL (0.0-0.2); BILIRUBIN,TOTAL 1.1 mg/dL (0.2-1.0); TOTAL PROTEIN, SERUM 5.6 g/dL (6.4-8.2)
[2024-06-27 11:55] LABS: ALBUMIN 1.3 g/dL (3.4-5.0)
[2024-06-27 14:48] LABS: POTASSIUM 3.5 mmol/L (3.5-5.1)
[2024-06-27 14:51] LABS: NEUTROPHILS % (MANUAL) 92 (42-76)
[2024-06-27 14:52] LABS: ANISOCYTOSIS 1+; LYMPHOCYTES % (MANUAL) 6 % (16-48); MONOCYTES % (MANUAL) 2 % (0-11.0); PLATELET ESTIMATE DECREASED
[2024-06-27 16:21] LABS: BASOPHILS % (AUTO) 0.6 % (0.0-2.0); EOSINOPHILS # (AUTO) 0.1 K/uL (0.0-0.7); EOSINOPHILS % (AUTO) 3.4 % (0.0-6.0); HEMATOCRIT 22 % (39-51); LYMPHOCYTES # (AUTO) 0.3 K/uL (0.8-4.8); LYMPHOCYTES % (AUTO) 6.5 % (20.0-44.0); MEAN CORPUSCULAR HEMOGLOBIN 31 PG (26.0-33.0); MEAN CORPUSCULAR HGB CONC 36 g/dl (31.0-36.0); MEAN CORPUSCULAR VOLUME 86 fL (80-96); MONOCYTES # (AUTO) 0.2 K/uL (0.1-1.30); MONOCYTES % (AUTO) 3.9 % (2.0-12.0); NEUTROPHILS # (AUTO) 3.5 K/uL (1.8-8.9); NEUTROPHILS % (AUTO) 85.6 % (43.0-81.0); RED BLOOD CELL COUNT(AUTO) 2.59 MIL/uL (4.5-6.0); RED CELL DISTRIBUTION WIDTH 19.1 % (11.5-15.0); WHITE BLOOD COUNT (AUTO) 4.1 K/uL (4.3-11.0)
[2024-06-27 16:45] LABS: PLATELET COUNT (AUTO) 32 K/uL (150-450)
[2024-06-27 21:17] LABS: ANISOCYTOSIS 2+; BAND % (MANUAL) 0 % (0.0-5.0); EOSINOPHILS % (MANUAL) 1 % (0-4); LYMPHOCYTES % (MANUAL) 8 % (16-48); MONOCYTES % (MANUAL) 2 % (0-11.0); NEUTROPHILS % (MANUAL) 89 (42-76); PLATELET ESTIMATE DECREASED
[2024-06-28 01:20] VITALS: BP 114/94; TEMP 97; O2SAT 100
[2024-06-28] MEDS: ALBUMIN 5% 12.5 GM in PREMIX 1 EA IV ONE (02:00)
[2024-06-28 04:00] VITALS: BP 146/84; TEMP 97.5; O2SAT 100
[2024-06-28 08:00] VITALS: BP 135/98; TEMP 97; O2SAT 100
[2024-06-28 12:00] VITALS: BP 152/82; TEMP 98; O2SAT 100
[2024-06-28 16:00] VITALS: BP 114/72; TEMP 96.9; O2SAT 99
[2024-06-28 17:10] LABS: *SPE A/G RATIO 0.4 (0.7-1.7); *SPE ALBUMIN 1.6 g/dL (2.9-4.4); *SPE ALPHA-1-GLOBULIN 0.3 g/dL (0.0-0.4); *SPE ALPHA-2-GLOBULIN 0.5 g/dL (0.4-1.0); *SPE BETA GLOBULIN 0.7 g/dL (0.7-1.3); *SPE GLOBULIN, TOTAL 3.7 g/dL (2.2-3.9); *SPE M-SPIKE Not Observed g/dL (Not Observed); *SPE PROTEIN TOTAL 5.3 g/dL (6.0-8.5); *SPEGAMMA GLOBULIN 2.2 g/dL (0.4-1.8)
[2024-06-28 17:54] LABS: HEMOGLOBIN 8.2 g/dL (13.5-17.5); LYMPHOCYTES # (AUTO) 0.2 K/uL (0.8-4.8); MONOCYTES # (AUTO) 0.1 K/uL (0.1-1.30); NEUTROPHILS # (AUTO) 3.9 K/uL (1.8-8.9)
[2024-06-28 18:00] LABS: WHITE BLOOD COUNT (AUTO) 4.3 K/uL (4.3-11.0)
[2024-06-28 18:04] LABS: CALCIUM, SERUM 7.9 mg/dL (8.5-10.1); CREATININE 2.2 mg/dL (0.6-1.3); POTASSIUM 4.3 mmol/L (3.5-5.1)
[2024-06-28 18:15] LABS: BASOPHILS % (AUTO) 0.2 % (0.0-2.0); HEMATOCRIT 23 % (39-51); LYMPHOCYTES % (AUTO) 5.2 % (20.0-44.0); MEAN CORPUSCULAR HEMOGLOBIN 32 PG (26.0-33.0); MEAN CORPUSCULAR HGB CONC 37 g/dl (31.0-36.0); MEAN CORPUSCULAR VOLUME 87 fL (80-96); MONOCYTES % (AUTO) 2.9 % (2.0-12.0); NEUTROPHILS % (AUTO) 90.7 % (43.0-81.0); RED CELL DISTRIBUTION WIDTH 19.1 % (11.5-15.0)
[2024-06-28 18:29] LABS: PLATELET COUNT (AUTO) 29 K/uL (150-450)
[2024-06-28 18:59] LABS: ANISOCYTOSIS 1+; BAND % (MANUAL) 0 % (0.0-5.0); BASOPHILS % (MANUAL) 0 % (0.0-2.0); EOSINOPHILS % (MANUAL) 1 % (0-4); LYMPHOCYTES % (MANUAL) 8 % (16-48); MONOCYTES % (MANUAL) 2 % (0-11.0); NEUTROPHILS % (MANUAL) 89 (42-76); PLATELET ESTIMATE DECREASED
[2024-06-28 20:00] VITALS: BP 89/56; TEMP 96; O2SAT 98
[2024-06-29] VITALS: BP 142/94; TEMP 97.3; O2SAT 100
[2024-06-29 04:00] VITALS: BP 145/91; TEMP 97.7; O2SAT 98
[2024-06-29 08:00] VITALS: BP 142/84; TEMP 97.9; O2SAT 100
[2024-06-29 10:40] LABS: CALCIUM, SERUM 7.9 mg/dL (8.5-10.1); CREATININE 1.8 mg/dL (0.6-1.3); POTASSIUM 3.9 mmol/L (3.5-5.1)
[2024-06-29 10:52] LABS: BASOPHILS % (AUTO) 0.2 % (0.0-2.0); D-DIMER 2.55 mg/L(FEU (0.17-0.50); EOSINOPHILS # (AUTO) 0.1 K/uL (0.0-0.7); EOSINOPHILS % (AUTO) 1.7 % (0.0-6.0); HEMOGLOBIN 7.3 g/dL (13.5-17.5); INR 1.52 (0.91-1.10); LYMPHOCYTES # (AUTO) 0.3 K/uL (0.8-4.8); LYMPHOCYTES % (AUTO) 8.1 % (20.0-44.0); MEAN CORPUSCULAR HEMOGLOBIN 31 PG (26.0-33.0); MEAN CORPUSCULAR HGB CONC 36 g/dl (31.0-36.0); MEAN CORPUSCULAR VOLUME 87 fL (80-96); MONOCYTES # (AUTO) 0.2 K/uL (0.1-1.30); MONOCYTES % (AUTO) 3.8 % (2.0-12.0); NEUTROPHILS # (AUTO) 3.5 K/uL (1.8-8.9); NEUTROPHILS % (AUTO) 86.2 % (43.0-81.0); PARTIAL THROMBOPLASTIN TIME 45.5 SEC (24.3-34.3); PROTHROMBIN TIME 15.7 SECS (9.2-11.1); RED BLOOD CELL COUNT(AUTO) 2.33 MIL/uL (4.5-6.0); WHITE BLOOD COUNT (AUTO) 4.1 K/uL (4.3-11.0)
[2024-06-29] MEDS ORDERED: NEPRO VAN 237 ML CAN PO PRN (11:00)
[2024-06-29 11:03] LABS: HEMATOCRIT 20 % (39-51); PLATELET COUNT (AUTO) 42 K/uL (150-450)
[2024-06-29] MEDS: DEXTROSE 50%-WATER 50 ML DISP.SYRIN IV PRN (11:16)
[2024-06-29 12:00] VITALS: BP 135/77; TEMP 97.8; O2SAT 100
[2024-06-29 14:20] LABS: EOSINOPHILS % (MANUAL) 1 % (0-4); LYMPHOCYTES % (MANUAL) 4 % (16-48); MONOCYTES % (MANUAL) 1 % (0-11.0); NEUTROPHILS % (MANUAL) 94 (42-76)
[2024-06-29 14:21] LABS: PLATELET ESTIMATE DECREASED
[2024-06-29 16:00] VITALS: BP 113/64; TEMP 97.2; O2SAT 100
[2024-06-29 20:00] VITALS: BP 135/77; TEMP 97.5; O2SAT 100
[2024-06-29] MEDS ORDERED: Sodium Chloride 154 MEQ in IV 10% DEXTROSE 1,000 ML IV PRN (23:00)
[2024-06-29] MEDS ORDERED: DEXTROSE 10% IN WATER 250 ML BAG IV PRN (23:30)
[2024-06-29] MEDS: IV 10% DEXTROSE 1,000 ML IV PRN (23:35)
[2024-06-30] VITALS (7 sets, daily range): BP systolic 138–156; BP diastolic 81–94; TEMP 97.2–97.7; O2SAT 98–100
[2024-06-30 07:50] LABS: CALCIUM, SERUM 7.7 mg/dL (8.5-10.1); CREATININE 1.7 mg/dL (0.6-1.3); POTASSIUM 3.7 mmol/L (3.5-5.1)
[2024-06-30 11:13] LABS: BASOPHILS % (AUTO) 0.3 % (0.0-2.0); EOSINOPHILS % (AUTO) 1.2 % (0.0-6.0); LYMPHOCYTES # (AUTO) 0.3 K/uL (0.8-4.8); LYMPHOCYTES % (AUTO) 9.4 % (20.0-44.0); MEAN CORPUSCULAR HEMOGLOBIN 31 PG (26.0-33.0); MEAN CORPUSCULAR HGB CONC 35 g/dl (31.0-36.0); MEAN CORPUSCULAR VOLUME 88 fL (80-96); MONOCYTES # (AUTO) 0.2 K/uL (0.1-1.30); MONOCYTES % (AUTO) 4.5 % (2.0-12.0); NEUTROPHILS % (AUTO) 84.6 % (43.0-81.0); RED BLOOD CELL COUNT(AUTO) 2.27 MIL/uL (4.5-6.0); RED CELL DISTRIBUTION WIDTH 18.7 % (11.5-15.0); WHITE BLOOD COUNT (AUTO) 3.5 K/uL (4.3-11.0)
[2024-06-30 11:25] LABS: HEMATOCRIT 20 % (39-51); HEMOGLOBIN 6.9 g/dL (13.5-17.5)
[2024-06-30 11:26] LABS: PLATELET COUNT (AUTO) 48 K/uL (150-450)
[2024-06-30 11:59] LABS: EOSINOPHILS % (MANUAL) 2 % (0-4); LYMPHOCYTES % (MANUAL) 3 % (16-48); MONOCYTES % (MANUAL) 2 % (0-11.0); NEUTROPHILS % (MANUAL) 93 (42-76)
[2024-06-30 12:00] LABS: ANISOCYTOSIS 1+; PLATELET ESTIMATE DECREASED
[2024-07-01] VITALS (11 sets, daily range): BP systolic 90–160; BP diastolic 64–102; TEMP 97.3–97.7; O2SAT 92–100
[2024-07-01 07:45] LABS: CALCIUM, SERUM 7.9 mg/dL (8.5-10.1); CREATININE 2.1 mg/dL (0.6-1.3); POTASSIUM 3.7 mmol/L (3.5-5.1)
[2024-07-01 08:07] LABS: BASOPHILS % (AUTO) 0.3 % (0.0-2.0); EOSINOPHILS # (AUTO) 0.1 K/uL (0.0-0.7); EOSINOPHILS % (AUTO) 2.4 % (0.0-6.0); HEMATOCRIT 24 % (39-51); HEMOGLOBIN 8.7 g/dL (13.5-17.5); LYMPHOCYTES # (AUTO) 0.3 K/uL (0.8-4.8); LYMPHOCYTES % (AUTO) 7.8 % (20.0-44.0); MEAN CORPUSCULAR HEMOGLOBIN 32 PG (26.0-33.0); MEAN CORPUSCULAR HGB CONC 36 g/dl (31.0-36.0); MEAN CORPUSCULAR VOLUME 87 fL (80-96); MONOCYTES # (AUTO) 0.2 K/uL (0.1-1.30); MONOCYTES % (AUTO) 4.9 % (2.0-12.0); NEUTROPHILS # (AUTO) 3.6 K/uL (1.8-8.9); NEUTROPHILS % (AUTO) 84.6 % (43.0-81.0); RED BLOOD CELL COUNT(AUTO) 2.74 MIL/uL (4.5-6.0); RED CELL DISTRIBUTION WIDTH 17.7 % (11.5-15.0); WHITE BLOOD COUNT (AUTO) 4.3 K/uL (4.3-11.0)
[2024-07-01 08:17] LABS: D-DIMER 3.71 mg/L(FEU (0.17-0.50); INR 1.46 (0.91-1.10); PARTIAL THROMBOPLASTIN TIME 44.1 SEC (24.3-34.3); PROTHROMBIN TIME 15.1 SECS (9.2-11.1)
[2024-07-01 08:24] LABS: PLATELET COUNT (AUTO) 45 K/uL (150-450)
[2024-07-01 08:33] LABS: FERRITIN 2440 ng/mL (8-388); IRON, SERUM 72 ug/dl (50-175)
[2024-07-01 20:03] LABS: ANISOCYTOSIS 1+; EOSINOPHILS % (MANUAL) 1 % (0-4); LYMPHOCYTES % (MANUAL) 5 % (16-48); MONOCYTES % (MANUAL) 4 % (0-11.0); NEUTROPHILS % (MANUAL) 90 (42-76); PLATELET ESTIMATE DECREASED; ROULEAUX 1+
[2024-07-02] VITALS: BP 157/100; TEMP 97.5; O2SAT 99
[2024-07-02 04:00] VITALS: BP 168/106; TEMP 97.9; O2SAT 97
[2024-07-02 08:04] LABS: D-DIMER 3.64 mg/L(FEU (0.17-0.50); INR 1.44 (0.91-1.10); PARTIAL THROMBOPLASTIN TIME 44.3 SEC (24.3-34.3); PROTHROMBIN TIME 14.9 SECS (9.2-11.1)
[2024-07-02 08:19] VITALS: BP 141/94; TEMP 97.5; O2SAT 100
[2024-07-02 08:23] LABS: BASOPHILS % (AUTO) 0.2 % (0.0-2.0); EOSINOPHILS # (AUTO) 0.1 K/uL (0.0-0.7); EOSINOPHILS % (AUTO) 1.9 % (0.0-6.0); HEMATOCRIT 24 % (39-51); HEMOGLOBIN 8.4 g/dL (13.5-17.5); LYMPHOCYTES # (AUTO) 0.4 K/uL (0.8-4.8); LYMPHOCYTES % (AUTO) 9.9 % (20.0-44.0); MEAN CORPUSCULAR HEMOGLOBIN 31 PG (26.0-33.0); MEAN CORPUSCULAR HGB CONC 35 g/dl (31.0-36.0); MEAN CORPUSCULAR VOLUME 87 fL (80-96); MONOCYTES # (AUTO) 0.2 K/uL (0.1-1.30); MONOCYTES % (AUTO) 5.4 % (2.0-12.0); NEUTROPHILS # (AUTO) 3.3 K/uL (1.8-8.9); NEUTROPHILS % (AUTO) 82.6 % (43.0-81.0); RED BLOOD CELL COUNT(AUTO) 2.76 MIL/uL (4.5-6.0); RED CELL DISTRIBUTION WIDTH 17.8 % (11.5-15.0); WHITE BLOOD COUNT (AUTO) 3.9 K/uL (4.3-11.0)
[2024-07-02 08:35] LABS: PLATELET COUNT (AUTO) 41 K/uL (150-450)
[2024-07-02 08:39] LABS: CALCIUM, SERUM 7.9 mg/dL (8.5-10.1); CREATININE 2.1 mg/dL (0.6-1.3); POTASSIUM 3.8 mmol/L (3.5-5.1)
[2024-07-02 10:11] LABS: FREE KAPPA LT CHAINS SERUM 352.7 mg/L (3.3-19.4); FREE LAMBDA LT CHAIN SERUM 264.9 mg/L (5.7-26.3); KAPPA/LAMBDA RATIO SERUM 1.33 (0.26-1.65)
[2024-07-02 12:20] VITALS: BP 141/94; TEMP 97.5; O2SAT 92
[2024-07-02] MEDS ORDERED: DOPTELET PO SCH ×2 (14:04→14:26)
[2024-07-02] MEDS: DOPTELET PO SCH (14:28)
[2024-07-02 15:32] LABS: ANISOCYTOSIS 1+; LYMPHOCYTES % (MANUAL) 12 % (16-48); MONOCYTES % (MANUAL) 1 % (0-11.0); NEUTROPHILS % (MANUAL) 87 (42-76); PLATELET ESTIMATE DECREASED
[2024-07-02 16:32] VITALS: BP 148/106; TEMP 97.5; O2SAT 93
[2024-07-02] MEDS: EPOETIN ALFA (10,000 UNIT) 10,000 UNIT/ML VIAL SQ SCH (18:58)
[2024-07-02 20:00] VITALS: BP 166/92; TEMP 94.6; O2SAT 93
[2024-07-03] VITALS: BP 129/89; TEMP 94.6; O2SAT 93
[2024-07-03] MEDS ORDERED: Sodium Chloride 154 MEQ in IV 10% DEXTROSE 1,000 ML IV ONE (00:30)
[2024-07-03] MEDS ORDERED: Sodium Chloride 77 MEQ in IV 10% DEXTROSE 1,000 ML IV ONE (01:00)
[2024-07-03] MEDS: DEXTROSE 50%-WATER 50 ML DISP.SYRIN IVP ONE (01:11)
[2024-07-03] MEDS: DEXTROSE 10% IN WATER 250 ML BAG IV ONE (02:46)
[2024-07-03 04:00] VITALS: BP 151/86; TEMP 95.9; O2SAT 93
[2024-07-03 08:00] VITALS: BP 124/84; TEMP 97.7; O2SAT 93
[2024-07-03 08:30] LABS: D-DIMER 2.68 mg/L(FEU (0.17-0.50); INR 1.56 (0.91-1.10); PARTIAL THROMBOPLASTIN TIME 46.3 SEC (24.3-34.3); PROTHROMBIN TIME 16.1 SECS (9.2-11.1)
[2024-07-03 08:41] LABS: CALCIUM, SERUM 7.5 mg/dL (8.5-10.1); CREATININE 1.9 mg/dL (0.6-1.3); POTASSIUM 3.7 mmol/L (3.5-5.1)
[2024-07-03] MEDS: HOME MED MISCELLANEOUS PO SCH (09:57)
[2024-07-03 11:21] LABS: BASOPHILS % (AUTO) 0.3 % (0.0-2.0); EOSINOPHILS % (AUTO) 1.9 % (0.0-6.0); LYMPHOCYTES # (AUTO) 0.3 K/uL (0.8-4.8); LYMPHOCYTES % (AUTO) 11.6 % (20.0-44.0); MEAN CORPUSCULAR HEMOGLOBIN 31 PG (26.0-33.0); MEAN CORPUSCULAR HGB CONC 36 g/dl (31.0-36.0); MEAN CORPUSCULAR VOLUME 87 fL (80-96); MONOCYTES # (AUTO) 0.2 K/uL (0.1-1.30); MONOCYTES % (AUTO) 6.8 % (2.0-12.0); NEUTROPHILS % (AUTO) 79.4 % (43.0-81.0); RED BLOOD CELL COUNT(AUTO) 2.25 MIL/uL (4.5-6.0); RED CELL DISTRIBUTION WIDTH 17.7 % (11.5-15.0); WHITE BLOOD COUNT (AUTO) 2.5 K/uL (4.3-11.0)
[2024-07-03 11:34] LABS: HEMATOCRIT 20 % (39-51); PLATELET COUNT (AUTO) 30 K/uL (150-450)
[2024-07-03 12:00] VITALS: BP 138/89; TEMP 97.9; O2SAT 99
[2024-07-03 18:00] VITALS: BP 141/84; TEMP 97.9; O2SAT 100
[2024-07-03 19:15] LABS: ANISOCYTOSIS 1+; EOSINOPHILS % (MANUAL) 1 % (0-4); LYMPHOCYTES % (MANUAL) 12 % (16-48); MONOCYTES % (MANUAL) 3 % (0-11.0); NEUTROPHILS % (MANUAL) 84 (42-76); PLATELET ESTIMATE DECREASED
[2024-07-03 20:00] VITALS: BP 122/72; TEMP 98.4; O2SAT 97
[2024-07-04] VITALS: BP 124/77; TEMP 98.2; O2SAT 95
[2024-07-04 04:00] VITALS: BP 143/86; TEMP 98.5; O2SAT 99
[2024-07-04 08:00] VITALS: BP 130/73; TEMP 99.6; O2SAT 96
[2024-07-04] MEDS ORDERED: Sodium Chloride 154 MEQ in IV 10% DEXTROSE 1,000 ML IV PRN (08:30)
[2024-07-04] MEDS: DEXTROSE 10% IN WATER 250 ML BAG IV PRN (08:38)
[2024-07-04 09:13] LABS: ABG BASE EXCESS 9.2 mmol/L (-2.0-3.0); ABG OXYGEN SATURATION 96.8 % (94.0-98.0); ABG PCO2 43.5 mmHg (35.0-48.0); ABG PH 7.501 (7.350-7.450); ABG PO2 97.8 mmHg (83.0-108.0); ABG TOTAL HEMOGLOBIN 7.2 G/dL (13.5-17.5); COHb 0.3 % (0.5-1.5); MetHb 0.6 % (0.0-1.5); O2Hb 95.9 % (94.0-97.0); SITE, ABG LEFT BRACHIAL
[2024-07-04 12:00] VITALS: BP 148/73; TEMP 97.5; O2SAT 97
[2024-07-04 13:16] LABS: D-DIMER 2.89 mg/L(FEU (0.17-0.50); INR 1.55 (0.91-1.10); PARTIAL THROMBOPLASTIN TIME 46.3 SEC (24.3-34.3)
[2024-07-04 13:17] LABS: BASOPHILS % (AUTO) 0.2 % (0.0-2.0); EOSINOPHILS % (AUTO) 0.5 % (0.0-6.0); HEMATOCRIT 21 % (39-51); HEMOGLOBIN 7.2 g/dL (13.5-17.5); LYMPHOCYTES # (AUTO) 0.3 K/uL (0.8-4.8); LYMPHOCYTES % (AUTO) 10.3 % (20.0-44.0); MEAN CORPUSCULAR HEMOGLOBIN 31 PG (26.0-33.0); MEAN CORPUSCULAR HGB CONC 35 g/dl (31.0-36.0); MEAN CORPUSCULAR VOLUME 87 fL (80-96); MONOCYTES # (AUTO) 0.2 K/uL (0.1-1.30); MONOCYTES % (AUTO) 5.3 % (2.0-12.0); NEUTROPHILS # (AUTO) 2.6 K/uL (1.8-8.9); NEUTROPHILS % (AUTO) 83.7 % (43.0-81.0); RED BLOOD CELL COUNT(AUTO) 2.36 MIL/uL (4.5-6.0); WHITE BLOOD COUNT (AUTO) 3.1 K/uL (4.3-11.0)
[2024-07-04 13:26] LABS: PLATELET COUNT (AUTO) 26 K/uL (150-450)
[2024-07-04 13:28] LABS: CALCIUM, SERUM 8.1 mg/dL (8.5-10.1); CREATININE 1.9 mg/dL (0.6-1.3); POTASSIUM 3.6 mmol/L (3.5-5.1)
[2024-07-04 13:53] LABS: LYMPHOCYTES % (MANUAL) 9 % (16-48); MONOCYTES % (MANUAL) 6 % (0-11.0); NEUTROPHILS % (MANUAL) 85 (42-76)
[2024-07-04 13:54] LABS: ANISOCYTOSIS 1+; PLATELET ESTIMATE DECREASED
[2024-07-04 16:00] VITALS: BP 134/85; TEMP 98.5; O2SAT 98
[2024-07-04] MEDS: DEXTROSE 50%-WATER 50 ML DISP.SYRIN IVP ONE (17:39)
[2024-07-04 20:00] VITALS: BP 117/71; TEMP 98.7; O2SAT 92
[2024-07-05] VITALS (14 sets, daily range): BP systolic 125–160; BP diastolic 62–96; TEMP 97–98.6; O2SAT 95–100
[2024-07-05 08:26] LABS: D-DIMER 3.42 mg/L(FEU (0.17-0.50); INR 1.68 (0.91-1.10); PARTIAL THROMBOPLASTIN TIME 47.6 SEC (24.3-34.3); PROTHROMBIN TIME 17.2 SECS (9.2-11.1)
[2024-07-05 08:37] LABS: CREATININE 1.7 mg/dL (0.6-1.3); POTASSIUM 3.5 mmol/L (3.5-5.1)
[2024-07-05 08:38] LABS: BASOPHILS % (AUTO) 0.2 % (0.0-2.0); EOSINOPHILS % (AUTO) 1.1 % (0.0-6.0); LYMPHOCYTES # (AUTO) 0.3 K/uL (0.8-4.8); LYMPHOCYTES % (AUTO) 7.5 % (20.0-44.0); MEAN CORPUSCULAR HEMOGLOBIN 30 PG (26.0-33.0); MEAN CORPUSCULAR HGB CONC 35 g/dl (31.0-36.0); MEAN CORPUSCULAR VOLUME 88 fL (80-96); MONOCYTES # (AUTO) 0.2 K/uL (0.1-1.30); NEUTROPHILS # (AUTO) 2.9 K/uL (1.8-8.9); NEUTROPHILS % (AUTO) 86.2 % (43.0-81.0); RED BLOOD CELL COUNT(AUTO) 2.25 MIL/uL (4.5-6.0); RED CELL DISTRIBUTION WIDTH 18.3 % (11.5-15.0); WHITE BLOOD COUNT (AUTO) 3.4 K/uL (4.3-11.0)
[2024-07-05 08:45] LABS: HEMATOCRIT 20 % (39-51); HEMOGLOBIN 6.8 g/dL (13.5-17.5); PLATELET COUNT (AUTO) 28 K/uL (150-450)
[2024-07-05] MEDS ORDERED: ACETAMINOPHEN 325 MG TABLET PO ONE (11:00)
[2024-07-05] MEDS ORDERED: PHYTONADIONE INJ 10 MG/1 ML AMPUL SQ SCH (11:00)
[2024-07-05] MEDS: diphenhydrAMINE HCL 50 MG/ML VIAL IV ONE ×2 (11:00→14:40)
[2024-07-05] MEDS: PHYTONADIONE INJ 10 MG/1 ML AMPUL SQ ONE (12:49)
[2024-07-05 13:25] LABS: LYMPHOCYTES % (MANUAL) 5 % (16-48); MONOCYTES % (MANUAL) 3 % (0-11.0); NEUTROPHILS % (MANUAL) 92 (42-76)
[2024-07-05 13:26] LABS: ANISOCYTOSIS 1+; PLATELET ESTIMATE DECREASED
[2024-07-05] MEDS: ACETAMINOPHEN 650 MG/SUPP.RECT RC PRN (14:41)
[2024-07-05] MEDS: GENTAMICIN 500 MG in IV D5W 100 ML IV ONE (17:37)
[2024-07-05 23:33] LABS: BASOPHILS % (AUTO) 0.2 % (0.0-2.0); EOSINOPHILS % (AUTO) 0.9 % (0.0-6.0); HEMATOCRIT 23 % (39-51); LYMPHOCYTES # (AUTO) 0.3 K/uL (0.8-4.8); LYMPHOCYTES % (AUTO) 7.3 % (20.0-44.0); MEAN CORPUSCULAR HEMOGLOBIN 31 PG (26.0-33.0); MEAN CORPUSCULAR HGB CONC 35 g/dl (31.0-36.0); MEAN CORPUSCULAR VOLUME 88 fL (80-96); MONOCYTES # (AUTO) 0.2 K/uL (0.1-1.30); MONOCYTES % (AUTO) 4.3 % (2.0-12.0); NEUTROPHILS # (AUTO) 3.2 K/uL (1.8-8.9); NEUTROPHILS % (AUTO) 87.3 % (43.0-81.0); RED BLOOD CELL COUNT(AUTO) 2.57 MIL/uL (4.5-6.0); RED CELL DISTRIBUTION WIDTH 17.2 % (11.5-15.0); WHITE BLOOD COUNT (AUTO) 3.7 K/uL (4.3-11.0)
[2024-07-05 23:39] LABS: PLATELET COUNT (AUTO) 28 K/uL (150-450)
[2024-07-06] VITALS: BP 146/92; TEMP 98; O2SAT 98
[2024-07-06 01:13] LABS: LYMPHOCYTES % (MANUAL) 9 % (16-48); MONOCYTES % (MANUAL) 6 % (0-11.0); NEUTROPHILS % (MANUAL) 85 (42-76); PLATELET ESTIMATE DECREASED
[2024-07-06 01:14] LABS: ANISOCYTOSIS 1+
[2024-07-06 04:00] VITALS: BP 147/92; TEMP 97.9; O2SAT 98
[2024-07-06 08:00] VITALS: BP 154/92; TEMP 98; O2SAT 98
[2024-07-06 08:34] LABS: BASOPHILS % (AUTO) 0.1 % (0.0-2.0); EOSINOPHILS % (AUTO) 0.3 % (0.0-6.0); HEMATOCRIT 23 % (39-51); LYMPHOCYTES # (AUTO) 0.2 K/uL (0.8-4.8); MEAN CORPUSCULAR HEMOGLOBIN 31 PG (26.0-33.0); MEAN CORPUSCULAR HGB CONC 35 g/dl (31.0-36.0); MEAN CORPUSCULAR VOLUME 88 fL (80-96); MONOCYTES # (AUTO) 0.1 K/uL (0.1-1.30); MONOCYTES % (AUTO) 3.3 % (2.0-12.0); NEUTROPHILS % (AUTO) 91.3 % (43.0-81.0); RED BLOOD CELL COUNT(AUTO) 2.56 MIL/uL (4.5-6.0); RED CELL DISTRIBUTION WIDTH 16.9 % (11.5-15.0); WHITE BLOOD COUNT (AUTO) 4.3 K/uL (4.3-11.0)
[2024-07-06 08:43] LABS: PLATELET COUNT (AUTO) 37 K/uL (150-450)
[2024-07-06] MEDS ORDERED: GENTAMICIN 120 MG in IV D5W 100 ML IV PRN (10:00)
[2024-07-06 10:17] LABS: CALCIUM, SERUM 8.3 mg/dL (8.5-10.1); CREATININE 1.6 mg/dL (0.6-1.3); POTASSIUM 3.7 mmol/L (3.5-5.1)
[2024-07-06 10:34] LABS: LYMPHOCYTES % (MANUAL) 3 % (16-48); MONOCYTES % (MANUAL) 2 % (0-11.0); NEUTROPHILS % (MANUAL) 95 (42-76)
[2024-07-06 10:35] LABS: ANISOCYTOSIS 1+; PLATELET ESTIMATE DECREASED
[2024-07-06] MEDS ORDERED: GENTAMICIN 140 MG in IV D5W 100 ML IV PRN (10:44)
[2024-07-06 12:00] VITALS: BP 116/86; TEMP 98; O2SAT 98
[2024-07-06 16:00] VITALS: BP 142/83; TEMP 98.6; O2SAT 98
[2024-07-06 20:00] VITALS: BP 140/89; TEMP 97.9; O2SAT 98
[2024-07-07] VITALS (8 sets, daily range): BP systolic 90–151; BP diastolic 45–95; TEMP 97.5–98.4; O2SAT 94–100
[2024-07-07 07:15] LABS: BASOPHILS % (AUTO) 0.1 % (0.0-2.0); EOSINOPHILS % (AUTO) 0.4 % (0.0-6.0); HEMATOCRIT 21 % (39-51); LYMPHOCYTES # (AUTO) 0.2 K/uL (0.8-4.8); LYMPHOCYTES % (AUTO) 3.6 % (20.0-44.0); MEAN CORPUSCULAR HEMOGLOBIN 32 PG (26.0-33.0); MEAN CORPUSCULAR HGB CONC 36 g/dl (31.0-36.0); MEAN CORPUSCULAR VOLUME 88 fL (80-96); MONOCYTES # (AUTO) 0.1 K/uL (0.1-1.30); MONOCYTES % (AUTO) 3.1 % (2.0-12.0); NEUTROPHILS % (AUTO) 92.8 % (43.0-81.0); RED BLOOD CELL COUNT(AUTO) 2.39 MIL/uL (4.5-6.0); RED CELL DISTRIBUTION WIDTH 17.1 % (11.5-15.0); WHITE BLOOD COUNT (AUTO) 4.3 K/uL (4.3-11.0)
[2024-07-07 07:20] LABS: CALCIUM, SERUM 7.9 mg/dL (8.5-10.1); POTASSIUM 3.6 mmol/L (3.5-5.1)
[2024-07-07 07:22] LABS: D-DIMER 3.86 mg/L(FEU (0.17-0.50); INR 1.71 (0.91-1.10); PARTIAL THROMBOPLASTIN TIME 49.1 SEC (24.3-34.3); PROTHROMBIN TIME 17.5 SECS (9.2-11.1)
[2024-07-07 07:23] LABS: PLATELET COUNT (AUTO) 39 K/uL (150-450)
[2024-07-07 07:24] LABS: HEMOGLOBIN 7.6 g/dL (13.5-17.5)
[2024-07-07 07:25] LABS: GENTAMICIN,RANDOM 6.5 ug/ml (4.0-8.0)
[2024-07-07 08:50] LABS: ANISOCYTOSIS 1+; EOSINOPHILS % (MANUAL) 1 % (0-4); LYMPHOCYTES % (MANUAL) 1 % (16-48); MONOCYTES % (MANUAL) 3 % (0-11.0); NEUTROPHILS % (MANUAL) 95 (42-76); PLATELET ESTIMATE DECREASED
[2024-07-07] MEDS: IV 10% DEXTROSE 1,000 ML IV PRN (10:46)
[2024-07-07] MEDS ORDERED: GENTAMICIN 500 MG in IV D5W 100 ML IV SCH (17:00)
[2024-07-08] VITALS (12 sets, daily range): BP systolic 122–145; BP diastolic 75–86; TEMP 97.5–98.8; O2SAT 92–97
[2024-07-08 07:42] LABS: D-DIMER 3.11 mg/L(FEU (0.17-0.50); INR 1.78 (0.91-1.10); PARTIAL THROMBOPLASTIN TIME 51.8 SEC (24.3-34.3); PROTHROMBIN TIME 18.2 SECS (9.2-11.1)
[2024-07-08] MEDS ORDERED: LIDOCAINE 1% INJ 50 ML MDV IJ PRN (08:00)
[2024-07-08] MEDS ORDERED: ACETAMINOPHEN 325 MG TABLET PO ONE ×2 (08:00→14:30)
[2024-07-08] MEDS ORDERED: diphenhydrAMINE HCL 50 MG/ML VIAL IV ONE (08:00)
[2024-07-08 08:05] LABS: CALCIUM, SERUM 7.6 mg/dL (8.5-10.1); CREATININE 1.8 mg/dL (0.6-1.3); POTASSIUM 3.3 mmol/L (3.5-5.1)
[2024-07-08 08:12] LABS: BASOPHILS % (AUTO) 0.1 % (0.0-2.0); HEMATOCRIT 21 % (39-51); HEMOGLOBIN 7.7 g/dL (13.5-17.5); LYMPHOCYTES # (AUTO) 0.3 K/uL (0.8-4.8); LYMPHOCYTES % (AUTO) 6.8 % (20.0-44.0); MEAN CORPUSCULAR HEMOGLOBIN 32 PG (26.0-33.0); MEAN CORPUSCULAR HGB CONC 37 g/dl (31.0-36.0); MEAN CORPUSCULAR VOLUME 87 fL (80-96); MONOCYTES # (AUTO) 0.2 K/uL (0.1-1.30); MONOCYTES % (AUTO) 3.9 % (2.0-12.0); NEUTROPHILS # (AUTO) 3.6 K/uL (1.8-8.9); NEUTROPHILS % (AUTO) 88.2 % (43.0-81.0); RED BLOOD CELL COUNT(AUTO) 2.42 MIL/uL (4.5-6.0); RED CELL DISTRIBUTION WIDTH 16.8 % (11.5-15.0); WHITE BLOOD COUNT (AUTO) 4.1 K/uL (4.3-11.0)
[2024-07-08 08:27] LABS: PLATELET COUNT (AUTO) 33 K/uL (150-450)
[2024-07-08 09:04] LABS: BILIRUBIN,DIRECT 0.7 mg/dL (0.0-0.2); TOTAL PROTEIN, SERUM 5.2 g/dL (6.4-8.2)
[2024-07-08 09:12] LABS: ALBUMIN 1.4 g/dL (3.4-5.0)
[2024-07-08 10:53] LABS: LYMPHOCYTES % (MANUAL) 3 % (16-48); MONOCYTES % (MANUAL) 1 % (0-11.0); NEUTROPHILS % (MANUAL) 96 (42-76); PLATELET ESTIMATE DECREASED
[2024-07-08 10:54] LABS: ANISOCYTOSIS 1+
[2024-07-08] MEDS: POTASSIUM CL. PREMIX PERIPHER. 50 ML IV SCH (14:41)
[2024-07-08] MEDS: diphenhydrAMINE HCL 50 MG/ML VIAL IV ONE (17:55)
[2024-07-08] MEDS: BLOOD SUGAR DIAGNOSTIC 1 EACH STRIP IN SCH (21:41)
[2024-07-09] VITALS (18 sets, daily range): BP systolic 132–155; BP diastolic 74–93; TEMP 97.4–99.1; O2SAT 92–100
[2024-07-09 06:59] LABS: INR 1.63 (0.91-1.10); PROTHROMBIN TIME 16.7 SECS (9.2-11.1)
[2024-07-09 07:21] LABS: GENTAMICIN,RANDOM 4.1 ug/ml (4.0-8.0)
[2024-07-09 08:06] LABS: ALBUMIN 1.7 g/dL (3.4-5.0); BILIRUBIN,TOTAL 2.1 mg/dL (0.2-1.0); CALCIUM, SERUM 7.8 mg/dL (8.5-10.1); CREATININE 2.2 mg/dL (0.6-1.3); MAGNESIUM 1.8 mg/dL (1.8-2.4); POTASSIUM 3.4 mmol/L (3.5-5.1); TOTAL PROTEIN, SERUM 5.7 g/dL (6.4-8.2)
[2024-07-09 11:02] LABS: EOSINOPHILS % (AUTO) 0.9 % (0.0-6.0); HEMATOCRIT 29 % (39-51); HEMOGLOBIN 10.6 g/dL (13.5-17.5); LYMPHOCYTES # (AUTO) 0.2 K/uL (0.8-4.8); MEAN CORPUSCULAR HEMOGLOBIN 31 PG (26.0-33.0); MEAN CORPUSCULAR HGB CONC 36 g/dl (31.0-36.0); MEAN CORPUSCULAR VOLUME 87 fL (80-96); MONOCYTES # (AUTO) 0.1 K/uL (0.1-1.30); MONOCYTES % (AUTO) 2.9 % (2.0-12.0); NEUTROPHILS # (AUTO) 3.5 K/uL (1.8-8.9); NEUTROPHILS % (AUTO) 91.2 % (43.0-81.0); RED BLOOD CELL COUNT(AUTO) 3.39 MIL/uL (4.5-6.0); RED CELL DISTRIBUTION WIDTH 17.4 % (11.5-15.0); WHITE BLOOD COUNT (AUTO) 3.9 K/uL (4.3-11.0)
[2024-07-09 11:12] LABS: PLATELET COUNT (AUTO) 40 K/uL (150-450)
[2024-07-09 14:36] LABS: LYMPHOCYTES % (MANUAL) 8 % (16-48); NEUTROPHILS % (MANUAL) 92 (42-76); PLATELET ESTIMATE DECREASED
[2024-07-09] MEDS: GENTAMICIN IV PRN (20:25)
[2024-07-09] MEDS: D5W IV PRN (20:25)
[2024-07-10] VITALS (15 sets, daily range): BP systolic 117–171; BP diastolic 67–95; TEMP 97.5–98.7; O2SAT 100
[2024-07-10 07:02] LABS: CALCIUM, SERUM 7.3 mg/dL (8.5-10.1); POTASSIUM 3.3 mmol/L (3.5-5.1)
[2024-07-10 07:22] LABS: D-DIMER 3.3 mg/L(FEU (0.17-0.50); INR 1.73 (0.91-1.10); PARTIAL THROMBOPLASTIN TIME 49.8 SEC (24.3-34.3); PROTHROMBIN TIME 17.7 SECS (9.2-11.1)
[2024-07-10 08:30] LABS: BASOPHILS % (AUTO) 0.1 % (0.0-2.0); EOSINOPHILS % (AUTO) 0.7 % (0.0-6.0); LYMPHOCYTES # (AUTO) 0.2 K/uL (0.8-4.8); MEAN CORPUSCULAR HEMOGLOBIN 30 PG (26.0-33.0); MEAN CORPUSCULAR HGB CONC 35 g/dl (31.0-36.0); MEAN CORPUSCULAR VOLUME 87 fL (80-96); MONOCYTES # (AUTO) 0.1 K/uL (0.1-1.30); NEUTROPHILS % (AUTO) 89.2 % (43.0-81.0); RED BLOOD CELL COUNT(AUTO) 2.16 MIL/uL (4.5-6.0); WHITE BLOOD COUNT (AUTO) 3.4 K/uL (4.3-11.0)
[2024-07-10 08:50] LABS: HEMOGLOBIN 6.6 g/dL (13.5-17.5)
[2024-07-10 08:51] LABS: HEMATOCRIT 19 % (39-51); PLATELET COUNT (AUTO) 41 K/uL (150-450)
[2024-07-10] MEDS: ACETAMINOPHEN 325 MG TABLET PO ONE (13:32)
[2024-07-10] MEDS: diphenhydrAMINE HCL 50 MG/ML VIAL IV ONE (13:33)
[2024-07-10 14:44] LABS: LYMPHOCYTES % (MANUAL) 6 % (16-48); NEUTROPHILS % (MANUAL) 94 (42-76)
[2024-07-10 14:45] LABS: ANISOCYTOSIS 1+; PLATELET ESTIMATE DECREASED
[2024-07-10 17:16] LABS: HEMOGLOBIN 7.4 g/dL (13.5-17.5)
[2024-07-11] VITALS (7 sets, daily range): BP systolic 143–157; BP diastolic 85–98; TEMP 97.1–97.9; O2SAT 97–100
[2024-07-11 07:01] LABS: D-DIMER 3.64 mg/L(FEU (0.17-0.50); INR 1.8 (0.91-1.10); PARTIAL THROMBOPLASTIN TIME 52.3 SEC (24.3-34.3); PROTHROMBIN TIME 18.4 SECS (9.2-11.1)
[2024-07-11 07:06] LABS: CALCIUM, SERUM 7.3 mg/dL (8.5-10.1); CREATININE 2.3 mg/dL (0.6-1.3); POTASSIUM 3.5 mmol/L (3.5-5.1)
[2024-07-11] MEDS ORDERED: TPN/PPN PER PHARMACY IV PRN (12:30)
[2024-07-11 15:19] LABS: MAGNESIUM 1.7 mg/dL (1.8-2.4)
[2024-07-11] MEDS: TPN #1 IV SCH (15:27)
[2024-07-11 16:43] LABS: BASOPHILS % (AUTO) 0.1 % (0.0-2.0); HEMATOCRIT 23 % (39-51); HEMOGLOBIN 7.9 g/dL (13.5-17.5); LYMPHOCYTES # (AUTO) 0.2 K/uL (0.8-4.8); LYMPHOCYTES % (AUTO) 5.8 % (20.0-44.0); MEAN CORPUSCULAR HEMOGLOBIN 30 PG (26.0-33.0); MEAN CORPUSCULAR HGB CONC 35 g/dl (31.0-36.0); MEAN CORPUSCULAR VOLUME 86 fL (80-96); MONOCYTES # (AUTO) 0.2 K/uL (0.1-1.30); MONOCYTES % (AUTO) 4.5 % (2.0-12.0); NEUTROPHILS # (AUTO) 3.7 K/uL (1.8-8.9); NEUTROPHILS % (AUTO) 88.6 % (43.0-81.0); RED BLOOD CELL COUNT(AUTO) 2.68 MIL/uL (4.5-6.0); RED CELL DISTRIBUTION WIDTH 18.1 % (11.5-15.0); WHITE BLOOD COUNT (AUTO) 4.2 K/uL (4.3-11.0)
[2024-07-11] MEDS ORDERED: diphenhydrAMINE HCL 50 MG/ML VIAL IV ONE (17:00)
[2024-07-11 18:00] LABS: PLATELET COUNT (AUTO) 45 K/uL (150-450)
[2024-07-11 20:47] LABS: ANISOCYTOSIS 1+; EOSINOPHILS % (MANUAL) 2 % (0-4); LYMPHOCYTES % (MANUAL) 11 % (16-48); MONOCYTES % (MANUAL) 1 % (0-11.0); NEUTROPHILS % (MANUAL) 86 (42-76); PLATELET ESTIMATE DECREASED
[2024-07-11 20:48] LABS: OVALOCYTES RARE
[2024-07-12] VITALS (13 sets, daily range): BP systolic 90–160; BP diastolic 54–110; TEMP 96.5–97.7; O2SAT 98–100
[2024-07-12 07:20] LABS: CALCIUM, SERUM 7.3 mg/dL (8.5-10.1); CREATININE 2.6 mg/dL (0.6-1.3); MAGNESIUM 1.6 mg/dL (1.8-2.4); PHOSPHORUS 3.6 mg/dL (2.5-4.9); POTASSIUM 3.8 mmol/L (3.5-5.1)
[2024-07-12 07:42] LABS: BASOPHILS % (AUTO) 0.1 % (0.0-2.0); EOSINOPHILS % (AUTO) 0.6 % (0.0-6.0); HEMATOCRIT 21 % (39-51); HEMOGLOBIN 7.6 g/dL (13.5-17.5); LYMPHOCYTES # (AUTO) 0.2 K/uL (0.8-4.8); LYMPHOCYTES % (AUTO) 5.3 % (20.0-44.0); MEAN CORPUSCULAR HEMOGLOBIN 31 PG (26.0-33.0); MEAN CORPUSCULAR HGB CONC 36 g/dl (31.0-36.0); MEAN CORPUSCULAR VOLUME 86 fL (80-96); MONOCYTES # (AUTO) 0.2 K/uL (0.1-1.30); PLATELET COUNT (AUTO) 65 K/uL (150-450); RED CELL DISTRIBUTION WIDTH 17.9 % (11.5-15.0); WHITE BLOOD COUNT (AUTO) 4.5 K/uL (4.3-11.0)
[2024-07-12 07:48] LABS: CHOLESTEROL 54 mg/dL (<200); HDL CHOLESTEROL 43 mg/dL (40-60); LDL 11 mg/dL (0-99); TRIGLYCERIDES 0 mg/dL (30-150)
[2024-07-12 09:17] LABS: D-DIMER 2.95 mg/L(FEU (0.17-0.50); INR 1.62 (0.91-1.10); PARTIAL THROMBOPLASTIN TIME 49.5 SEC (24.3-34.3); PROTHROMBIN TIME 16.6 SECS (9.2-11.1)
[2024-07-12 10:50] LABS: LYMPHOCYTES % (MANUAL) 5 % (16-48); MONOCYTES % (MANUAL) 5 % (0-11.0); NEUTROPHILS % (MANUAL) 90 (42-76)
[2024-07-12 10:51] LABS: ANISOCYTOSIS 1+; PLATELET ESTIMATE DECREASED
[2024-07-12] MEDS: Magnesium 1GM/D5W 100ML PREMIX 100 ML IV SCH (11:15)
[2024-07-12] MEDS: TPN #2 IV SCH (16:29)
[2024-07-13] VITALS: BP 90/54; TEMP 97.3; O2SAT 98
[2024-07-13 04:00] VITALS: BP 133/71; TEMP 97.3; O2SAT 98
[2024-07-13 05:40] LABS: CALCIUM, SERUM 7.3 mg/dL (8.5-10.1); CREATININE 2.3 mg/dL (0.6-1.3); MAGNESIUM 1.7 mg/dL (1.8-2.4); PHOSPHORUS 3.3 mg/dL (2.5-4.9)
[2024-07-13 08:00] VITALS: BP 146/96; TEMP 97.3; O2SAT 95
[2024-07-13] MEDS: TPN #3 IV SCH (10:04)
[2024-07-13 12:00] VITALS: BP 137/76; TEMP 97.5; O2SAT 99
[2024-07-13 16:00] VITALS: BP 140/85; TEMP 97.5; O2SAT 100
[2024-07-13 20:00] VITALS: BP 147/87; TEMP 97.5; O2SAT 100
[2024-07-14] VITALS (9 sets, daily range): BP systolic 119–155; BP diastolic 67–97; TEMP 97.1–97.7; O2SAT 96–100
[2024-07-14] MEDS ORDERED: TPN #4 IV SCH (02:38)
[2024-07-14] MEDS: TPN #4 IV SCH (02:38)
[2024-07-14 07:26] LABS: BASOPHILS % (AUTO) 0.4 % (0.0-2.0); EOSINOPHILS % (AUTO) 0.4 % (0.0-6.0); LYMPHOCYTES # (AUTO) 0.2 K/uL (0.8-4.8); LYMPHOCYTES % (AUTO) 6.1 % (20.0-44.0); MEAN CORPUSCULAR HEMOGLOBIN 30 PG (26.0-33.0); MEAN CORPUSCULAR HGB CONC 34 g/dl (31.0-36.0); MEAN CORPUSCULAR VOLUME 88 fL (80-96); MONOCYTES # (AUTO) 0.1 K/uL (0.1-1.30); MONOCYTES % (AUTO) 3.7 % (2.0-12.0); NEUTROPHILS # (AUTO) 3.6 K/uL (1.8-8.9); NEUTROPHILS % (AUTO) 89.4 % (43.0-81.0); RED BLOOD CELL COUNT(AUTO) 2.23 MIL/uL (4.5-6.0)
[2024-07-14 07:27] LABS: INR 1.64 (0.91-1.10); PROTHROMBIN TIME 16.8 SECS (9.2-11.1)
[2024-07-14 07:34] LABS: HEMATOCRIT 20 % (39-51); HEMOGLOBIN 6.7 g/dL (13.5-17.5); PLATELET COUNT (AUTO) 45 K/uL (150-450)
[2024-07-14 07:40] LABS: CALCIUM, SERUM 7.3 mg/dL (8.5-10.1); CREATININE 2.7 mg/dL (0.6-1.3); MAGNESIUM 1.7 mg/dL (1.8-2.4); PHOSPHORUS 3.7 mg/dL (2.5-4.9); POTASSIUM 3.9 mmol/L (3.5-5.1)
[2024-07-14] MEDS: IV 10% DEXTROSE 1,000 ML IV SCH (07:46)
[2024-07-14] MEDS ORDERED: IV 10% DEXTROSE 1,000 ML IV SCH (08:30)
[2024-07-14 11:13] LABS: LYMPHOCYTES % (MANUAL) 7 % (16-48); MONOCYTES % (MANUAL) 1 % (0-11.0); NEUTROPHILS % (MANUAL) 92 (42-76); PLATELET ESTIMATE DECREASED
[2024-07-14 11:14] LABS: ANISOCYTOSIS 1+; HYPOCHROMASIA 1+
[2024-07-14] MEDS ORDERED: ACETAMINOPHEN 325 MG TABLET PO ONE (15:00)
[2024-07-14] MEDS ORDERED: diphenhydrAMINE HCL 50 MG/ML VIAL IV ONE (15:00)
[2024-07-14] MEDS ORDERED: LORAZEPAM 1 MG TABLET PO STA (17:06)
[2024-07-14] MEDS: LORAZEPAM INJ 2 MG/ML VIAL IV ONE (17:21)
[2024-07-14] MEDS: MORPHINE SULFATE INJ 2 MG/ML DISP.SYRIN IV STA (17:21)
[2024-07-14] MEDS ORDERED: LORAZEPAM 4 MG/ML VIAL IV ONE (17:30)
[2024-07-14] MEDS: Magnesium 1GM/D5W 100ML PREMIX 100 ML IV SCH (18:28)
[2024-07-14] MEDS ORDERED: D5W IV PRN ×3 (19:00)
[2024-07-14] MEDS ORDERED: GENTAMICIN IV PRN ×3 (19:00)
[2024-07-14 19:59] LABS: MEAN CORPUSCULAR HEMOGLOBIN 32 PG (26.0-33.0); MEAN CORPUSCULAR HGB CONC 36 g/dl (31.0-36.0); MEAN CORPUSCULAR VOLUME 88 fL (80-96); RED BLOOD CELL COUNT(AUTO) 2.08 MIL/uL (4.5-6.0); RED CELL DISTRIBUTION WIDTH 17.5 % (11.5-15.0); WHITE BLOOD COUNT (AUTO) 3.6 K/uL (4.3-11.0)
[2024-07-14 20:12] LABS: HEMATOCRIT 18 % (39-51); HEMOGLOBIN 6.6 g/dL (13.5-17.5); PLATELET COUNT (AUTO) 40 K/uL (150-450)
[2024-07-14] MEDS: TPN #5 IV SCH (20:24)
[2024-07-15] VITALS (13 sets, daily range): BP systolic 145–155; BP diastolic 76–99; TEMP 97–97.7; O2SAT 93–100
[2024-07-15 06:57] LABS: CALCIUM, SERUM 7.5 mg/dL (8.5-10.1); CREATININE 2.3 mg/dL (0.6-1.3); MAGNESIUM 1.8 mg/dL (1.8-2.4); PHOSPHORUS 3.1 mg/dL (2.5-4.9); POTASSIUM 3.8 mmol/L (3.5-5.1)
[2024-07-15 08:45] LABS: HEMOGLOBIN 6.8 g/dL (13.5-17.5)
[2024-07-15] MEDS ORDERED: Magnesium 1GM/D5W 100ML PREMIX 100 ML IV SCH (10:00)
[2024-07-15] MEDS: TPN #6 IV SCH (12:16)
[2024-07-15] MEDS: Magnesium 1GM/D5W 100ML PREMIX 100 ML IV SCH (14:57)
[2024-07-15 16:29] LABS: EOSINOPHILS % (AUTO) 0.5 % (0.0-6.0); HEMATOCRIT 23 % (39-51); HEMOGLOBIN 8.1 g/dL (13.5-17.5); LYMPHOCYTES # (AUTO) 0.2 K/uL (0.8-4.8); LYMPHOCYTES % (AUTO) 5.4 % (20.0-44.0); MEAN CORPUSCULAR HEMOGLOBIN 30 PG (26.0-33.0); MEAN CORPUSCULAR HGB CONC 35 g/dl (31.0-36.0); MEAN CORPUSCULAR VOLUME 86 fL (80-96); MONOCYTES # (AUTO) 0.2 K/uL (0.1-1.30); MONOCYTES % (AUTO) 4.9 % (2.0-12.0); NEUTROPHILS # (AUTO) 3.9 K/uL (1.8-8.9); NEUTROPHILS % (AUTO) 88.2 % (43.0-81.0); RED BLOOD CELL COUNT(AUTO) 2.68 MIL/uL (4.5-6.0); RED CELL DISTRIBUTION WIDTH 19.4 % (11.5-15.0); WHITE BLOOD COUNT (AUTO) 4.4 K/uL (4.3-11.0)
[2024-07-15 16:31] LABS: PLATELET COUNT (AUTO) 34 K/uL (150-450)
[2024-07-15 20:08] LABS: ANISOCYTOSIS 1+; EOSINOPHILS % (MANUAL) 2 % (0-4); LYMPHOCYTES % (MANUAL) 7 % (16-48); MONOCYTES % (MANUAL) 3 % (0-11.0); NEUTROPHILS % (MANUAL) 88 (42-76); PLATELET ESTIMATE DECREASED
[2024-07-15 20:09] LABS: ROULEAUX 1+
[2024-07-16] VITALS (8 sets, daily range): BP systolic 134–155; BP diastolic 80–97; TEMP 97.2–97.9; O2SAT 95–100
[2024-07-16] MEDS: TPN #7 IV SCH (05:41)
[2024-07-16] MEDS: DEXTROSE 50%-WATER 50 ML DISP.SYRIN IVP ONE (06:18)
[2024-07-16 07:38] LABS: GENTAMICIN,RANDOM 6.3 ug/ml (4.0-8.0)
[2024-07-16 08:18] LABS: CALCIUM, SERUM 7.5 mg/dL (8.5-10.1); CREATININE 2.7 mg/dL (0.6-1.3); PHOSPHORUS 3.9 mg/dL (2.5-4.9); POTASSIUM 4.2 mmol/L (3.5-5.1)
[2024-07-16] MEDS ORDERED: TPN #9 IV SCH (12:37)
[2024-07-16 16:16] LABS: BASOPHILS % (AUTO) 0.2 % (0.0-2.0); EOSINOPHILS % (AUTO) 0.2 % (0.0-6.0); HEMATOCRIT 23 % (39-51); LYMPHOCYTES # (AUTO) 0.3 K/uL (0.8-4.8); MEAN CORPUSCULAR HEMOGLOBIN 31 PG (26.0-33.0); MEAN CORPUSCULAR HGB CONC 36 g/dl (31.0-36.0); MEAN CORPUSCULAR VOLUME 86 fL (80-96); MONOCYTES # (AUTO) 0.2 K/uL (0.1-1.30); MONOCYTES % (AUTO) 4.1 % (2.0-12.0); NEUTROPHILS # (AUTO) 4.8 K/uL (1.8-8.9); NEUTROPHILS % (AUTO) 90.5 % (43.0-81.0); RED BLOOD CELL COUNT(AUTO) 2.61 MIL/uL (4.5-6.0); RED CELL DISTRIBUTION WIDTH 19.6 % (11.5-15.0); WHITE BLOOD COUNT (AUTO) 5.3 K/uL (4.3-11.0)
[2024-07-16 16:22] LABS: PLATELET COUNT (AUTO) 41 K/uL (150-450)
[2024-07-16 17:20] LABS: ANISOCYTOSIS 2+; EOSINOPHILS % (MANUAL) 1 % (0-4); LYMPHOCYTES % (MANUAL) 7 % (16-48); MONOCYTES % (MANUAL) 2 % (0-11.0); NEUTROPHILS % (MANUAL) 90 (42-76); PLATELET ESTIMATE DECREASED
[2024-07-16 17:38] LABS: D-DIMER 3.46 mg/L(FEU (0.17-0.50); INR 1.73 (0.91-1.10); PARTIAL THROMBOPLASTIN TIME 47.9 SEC (24.3-34.3); PROTHROMBIN TIME 17.7 SECS (9.2-11.1)
[2024-07-16] MEDS: TPN #8 IV SCH (22:11)
[2024-07-17] VITALS: BP 145/80; TEMP 97.5; O2SAT 97
[2024-07-17 04:00] VITALS: BP 156/90; TEMP 97.1; O2SAT 99
[2024-07-17 07:00] LABS: D-DIMER 3.87 mg/L(FEU (0.17-0.50); INR 1.72 (0.91-1.10); PARTIAL THROMBOPLASTIN TIME 48.9 SEC (24.3-34.3); PROTHROMBIN TIME 17.6 SECS (9.2-11.1)
[2024-07-17 07:07] LABS: CALCIUM, SERUM 7.4 mg/dL (8.5-10.1); CREATININE 2.7 mg/dL (0.6-1.3); MAGNESIUM 1.9 mg/dL (1.8-2.4); POTASSIUM 4.1 mmol/L (3.5-5.1)
[2024-07-17 08:00] VITALS: BP 149/94; TEMP 97.3; O2SAT 95
[2024-07-17 08:02] LABS: BASOPHILS % (AUTO) 0.2 % (0.0-2.0); EOSINOPHILS % (AUTO) 0.3 % (0.0-6.0); HEMATOCRIT 24 % (39-51); HEMOGLOBIN 8.3 g/dL (13.5-17.5); LYMPHOCYTES # (AUTO) 0.2 K/uL (0.8-4.8); MEAN CORPUSCULAR HEMOGLOBIN 30 PG (26.0-33.0); MEAN CORPUSCULAR HGB CONC 35 g/dl (31.0-36.0); MEAN CORPUSCULAR VOLUME 87 fL (80-96); MONOCYTES # (AUTO) 0.2 K/uL (0.1-1.30); MONOCYTES % (AUTO) 3.8 % (2.0-12.0); NEUTROPHILS # (AUTO) 4.9 K/uL (1.8-8.9); NEUTROPHILS % (AUTO) 91.7 % (43.0-81.0); RED BLOOD CELL COUNT(AUTO) 2.75 MIL/uL (4.5-6.0); WHITE BLOOD COUNT (AUTO) 5.4 K/uL (4.3-11.0)
[2024-07-17 08:27] LABS: PLATELET COUNT (AUTO) 45 K/uL (150-450)
[2024-07-17 12:00] VITALS: BP 153/96; TEMP 97.5; O2SAT 95
[2024-07-17] MEDS: TPN #9 IV SCH (12:33)
[2024-07-17 14:06] LABS: LYMPHOCYTES % (MANUAL) 5 % (16-48); NEUTROPHILS % (MANUAL) 95 (42-76); PLATELET ESTIMATE DECREASED
[2024-07-17 14:07] LABS: ANISOCYTOSIS 1+
[2024-07-17 16:00] VITALS: BP 145/95; TEMP 97.5; O2SAT 98
[2024-07-17 20:00] VITALS: BP 141/71; TEMP 98.5; O2SAT 98
== END 2024-07-17 21:30 | DRG 377 ==
LOC: ER 21:08 → TELE IN 23:15 → TELE1 06-17 08:05 → TELE-TD 06-17 09:38 → TELE1 06-21 10:10
PROVIDERS: ADMIT Nurse Practitioner Acute Care; ATTEND Internal Medicine
PROC: 5A1D70Z Performance of Urinary Filtration, Intermittent, Less than 6 Hours Per Day (ICD-10-PCS; principal; 2024-06-17)
PROC: 30233N1 Transfusion of Nonautologous Red Blood Cells into Peripheral Vein, Percutaneous Approach (ICD-10-PCS; 2024-06-18)
PROC: 0DJ08ZZ Inspection of Upper Intestinal Tract, Via Natural or Artificial Opening Endoscopic (ICD-10-PCS; 2024-06-19)
PROC: 0JHL3XZ Insertion of Tunneled Vascular Access Device into Right Upper Leg Subcutaneous Tissue and Fascia, Percutaneous Approach (ICD-10-PCS; 2024-06-19)
PROC: 06HM33Z Insertion of Infusion Device into Right Femoral Vein, Percutaneous Approach (ICD-10-PCS; 2024-06-19)
PROC: B54BZZA Ultrasonography of Right Lower Extremity Veins, Guidance (ICD-10-PCS; 2024-06-19)
PROC: 0W9B3ZX Drainage of Left Pleural Cavity, Percutaneous Approach, Diagnostic (ICD-10-PCS; 2024-06-19)
PROC: 30233R1 Transfusion of Nonautologous Platelets into Peripheral Vein, Percutaneous Approach (ICD-10-PCS; 2024-06-25)
PROC: 30233K1 Transfusion of Nonautologous Frozen Plasma into Peripheral Vein, Percutaneous Approach (ICD-10-PCS; 2024-06-26)
PROC: 0W993ZX Drainage of Right Pleural Cavity, Percutaneous Approach, Diagnostic (ICD-10-PCS; 2024-07-02)
PROC: 30233M1 Transfusion of Nonautologous Plasma Cryoprecipitate into Peripheral Vein, Percutaneous Approach (ICD-10-PCS; 2024-07-08)
PROC: 079T3ZX Drainage of Bone Marrow, Percutaneous Approach, Diagnostic (ICD-10-PCS; 2024-07-14)
DX: K92.2 Gastrointestinal hemorrhage, unspecified (principal); E43 Unspecified severe protein-calorie malnutrition; J15.69 Pneumonia due to other Gram-negative bacteria; N18.6 End stage renal disease; J96.01 Acute respiratory failure with hypoxia; G93.41 Metabolic encephalopathy; I13.2 Hypertensive heart and chronic kidney disease with heart failure and with stage 5 chronic kidney disease, or end stage renal disease; J90 Pleural effusion, not elsewhere classified; J98.11 Atelectasis; I50.32 Chronic diastolic (congestive) heart failure; I48.20 Chronic atrial fibrillation, unspecified; I82.613 Acute embolism and thrombosis of superficial veins of upper extremity, bilateral; I47.10 Supraventricular tachycardia, unspecified; R18.8 Other ascites; L03.116 Cellulitis of left lower limb; D61.818 Other pancytopenia; D68.9 Coagulation defect, unspecified; M86.172 Other acute osteomyelitis, left ankle and foot; E87.1 Hypo-osmolality and hyponatremia; K74.60 Unspecified cirrhosis of liver; Z66 Do not resuscitate; E11.22 Type 2 diabetes mellitus with diabetic chronic kidney disease; E11.40 Type 2 diabetes mellitus with diabetic neuropathy, unspecified; E11.51 Type 2 diabetes mellitus with diabetic peripheral angiopathy without gangrene; E11.621 Type 2 diabetes mellitus with foot ulcer; E11.649 Type 2 diabetes mellitus with hypoglycemia without coma; N40.0 Benign prostatic hyperplasia without lower urinary tract symptoms; M89.8X9 Other specified disorders of bone, unspecified site; R13.10 Dysphagia, unspecified; M62.50 Muscle wasting and atrophy, not elsewhere classified, unspecified site; Z88.1 Allergy status to other antibiotic agents; Z88.2 Allergy status to sulfonamides; Z79.4 Long term (current) use of insulin; Z79.01 Long term (current) use of anticoagulants; Z79.899 Other long term (current) drug therapy; D63.8 Anemia in other chronic diseases classified elsewhere; E88.09 Other disorders of plasma-protein metabolism, not elsewhere classified; Z88.3 Allergy status to other anti-infective agents; Z99.2 Dependence on renal dialysis; Z78.1 Physical restraint status; E11.69 Type 2 diabetes mellitus with other specified complication; I25.10 Atherosclerotic heart disease of native coronary artery without angina pectoris; D69.6 Thrombocytopenia, unspecified; F32.9 Major depressive disorder, single episode, unspecified; K21.9 Gastro-esophageal reflux disease without esophagitis; K82.8 Other specified diseases of gallbladder; L89.150 Pressure ulcer of sacral region, unstageable; N49.2 Inflammatory disorders of scrotum; Y95 Nosocomial condition; L97.519 Non-pressure chronic ulcer of other part of right foot with unspecified severity; L97.524 Non-pressure chronic ulcer of other part of left foot with necrosis of bone; F20.9 Schizophrenia, unspecified; E78.5 Hyperlipidemia, unspecified; D69.59 Other secondary thrombocytopenia; Z85.9 Personal history of malignant neoplasm, unspecified; M89.8X1 Other specified disorders of bone, shoulder; F09 Unspecified mental disorder due to known physiological condition; Z79.890 Hormone replacement therapy; Z79.51 Long term (current) use of inhaled steroids; D52.9 Folate deficiency anemia, unspecified; E87.5 Hyperkalemia; E87.6 Hypokalemia; E83.42 Hypomagnesemia
CPT/HCPCS: 36415; 36600; 71045-TC; 71250-TC; 76700-TC; 80048-TC; 80053-TC; 80061-TC; 80076-TC; 80170-TC; 80202-TC; 82040-TC; 82140-TC; 82247-TC; 82248-TC; 82272-TC; 82378; 82607-TC; 82728-TC; 82784; 82803-TC; 82962-TC; 83540-TC; 83690-TC; 83735-TC; 83880; 84100-TC; 84155; 84165; 84439-TC; 84443-TC; 84484-TC; 85025-TC; 85027-TC; 85385-TC; 85396; 85610-TC; 85652-TC; 85730-TC; 86140-TC; 86225; 86235; 86334; 86431-TC; 86706; 86803; 86850-TC; 87040-TC; 87081-TC; 87102-TC; 87340; 87806; 88108-TC; 88305-TC; 89051-TC; 90935-TC; 92526; 92611-TC; 94799-TC; A4216; A4223; A6253; A6403; G0378; J0360; J0692; J0885; J1200; J1580; J1815; J2060; J2270; J2405; J2470; J2704; J3370; J3430; J3475; J3480; J3490; J7030; J7040; J7042; J7050; J7060; P9012; P9016; P9017; P9034; P9045; P9047; Q9963